=== PATIENT | female | born 1970 | race Caucasian/White ===

== ENCOUNTER 2018-08-31 21:44 | Emergency (ER) | payer SELFPAY ==
[2018-08-31 21:57] VITALS: BP 145/99; PULSE 89; RESP 45; TEMP 36.7; O2SAT 98
--- NOTE | 2018-09-01 01:24 | W.ED.GENAD ---
Discharge Plan Disposition Patient Disposition: HOME Condition: Good Discharge Details Chief Complaint: ETOHWithdr Clinical Impression: ETOH abuse, Cannabis abuse Reason For Visit: KARIN Primary Care Provider: NONE,NONE ED Provider: Jasvir Horne Home Meds and New Rx's Prescriptions: No Action [id number] [Airborne (lysine HCl)] 1 EACH tablet, effervescent 1 tab PO DAILY RF: 0 ondansetron 4 MG tablet,disintegrating 4 mg PO Q6H PRN PRN (Reason: Nausea / Vomiting) Qty: 6 RF: 0 levofloxacin [Levaquin] 750 MG tablet 750 mg PO DAILY AM Qty: 10 RF: 0 phenazopyridine [Pyridium] 200 MG tablet 200 mg PO TID Qty: 7 RF: 0 hydrocodone-acetaminophen 1 EACH tablet 1 - 2 ea PO Q6H PRN PRNQty: 14 RF: 0 Discharge Instructions Instructions: Abuse of Alcohol (ED) Additional Instructions: Please drink 8-10 cups of water per day. If you notice any difficulty breathing, wheezes, or cough please return immediately. If you notice any worsening of your symptoms, or any new symptoms such as vomiting, diarrhea, fever, chills, shortness of breath, chest pain, numbness, weakness, or fainting , please return immediately to the emergency department for reevaluation. Please follow up with your primary care provider as soon as possible for reassessment and reevaluation. As always, it was a pleasure participating in your medical care today. Medical Decision Making This is a 48-year-old female who presents for subjective difficulty breathing after smoking marijuana and drinking more alcohol than she normally does. She does appear notably intoxicated on exam. Patient will have gasping episodes, but has no abnormal lung sounds, and has been remaining at 99% or higher on pulse oximetry. Breath sounds are unlabored, respiration rate normal. The patient's states that she often gets like this when she has marijuana and too much alcohol. When a nonrebreather was placed on the patient she gained significant relief from this, although no oxygen is flowing. With normal vital signs, no red flags for pulmonary embolism, no history of significant respiratory disease, and no signs of abnormal physical exam findings I feel that she can be safely observed and then reassess. Unfortunately I feel her symptoms are secondary to her marijuana and alcohol consumption, rather than an actual respiratory etiology. 1:31 AM the patient has been sleeping comfortably for the last hour and a half. She shows no signs of respiratory distress, tachypnea, hypoxemia, or any other abnormalities. Patient is easily arousable, and she has no complaints of any significant respiratory issues. Lung sounds remain clear. At this time I feel that the patient can be safely discharged home into the care of her , for sobering up. With no signs of airway compromise, respiratory stridor distress, respiratory problems, and symptoms only present for evaluation of intoxication they feel that she is safe for discharge home with her family. Discussed red flags for which to return the patient and family understand. I have extensively reviewed the treatment plan and discharge instructions with the patient. I have addressed all patient concerns at this time. The patient was made aware of what symptoms to monitor for that would warrant a return to the emergency department. Discussed the plan with the patient, they demonstrate verbal understanding and agreement with our assessment and plan at this time. Final assessment: The patient is able to speak clearly. There is no demonstration of any slurring of speech. There is evidence of clear decision making capacity. Patient is able to ambulate well without any difficulty. There are no signs of ataxia or stumbling motions. HPI General Date/Time Provider Initiated Documentation: 08/31/18 22:52. HPI Narrative: This is a 48-year-old female with a past medical history of thyroid disease, who presents today for intoxication. Patient was at a wedding this evening with her when she drank a little bit more than normal and smoked some pott. She does have a history of mild anxiety, and her states that when she gets drunk she becomes very anxious. After drinking she felt both nervous and began gasping for air. Upon EMS arrival she was saturating at 99-100% on room air, and showed no concerning lung sounds. She was brought into the ER by request and for further evaluation. Currently the patient does appear notably intoxicated, she denies any complaints, when you distract the patient she breathes normally with no distress, however you do not focus her attention she begins to breathe erratically, taking deep gasps, stating that she needs oxygen. EMS did place a nonrebreather on her with no flowing oxygen and the patient received significant relief from this. Currently the patient has no other complaints at this time. No recent surgeries, no pertinent family history. No history of IV or illicit drug use. Denies PE risk factors such as recent long car rides, immobilization, recent surgery, prior history of DVT or PE, family history of PE or DVT, morbid obesity, exogenous estrogen and smoking, hemoptysis, history of cancer. No previous history of airway disease, or asthma. Related Data Home Medications Medication Instructions Recorded Confirmed [id number] 1 tab PO DAILY 01/29/14 01/29/14 [Airborne Effervescent Tablet] ondansetron 4 mg PO Q6H PRN PRN #6 tabef 01/29/14 hydrocodone-acetaminophen 1 - 2 ea PO Q6H PRN PRN #14 tablet 12/13/16 levofloxacin [Levaquin] 750 mg PO DAILY AM #10 tablet 12/13/16 phenazopyridine [Pyridium] 200 mg PO TID #7 tablet 12/13/16 Previous Rx's Medication Instructions Recorded ondansetron 4 mg PO Q6H PRN PRN #6 tabef 01/29/14 hydrocodone-acetaminophen 1 - 2 ea PO Q6H PRN PRN #14 tablet 12/13/16 levofloxacin [Levaquin] 750 mg PO DAILY AM #10 tablet 12/13/16 phenazopyridine [Pyridium] 200 mg PO TID #7 tablet 12/13/16 Allergies Allergy/AdvReac Type Severity Reaction Status Date / Time Penicillins Allergy Mild Skin Rash Unverified 01/29/14 12:12 hay fever Allergy Intermediate Wheezing Uncoded 01/29/14 12:12 General Stated Complaint: ETOHWithdr DYLAN: 3 Review of Systems Review of Systems All systems reviewed & are unremarkable except as noted in HPI and below PFSH Social History Smoking/Tobacco Use Status: Former Tobacco Use Exam Narrative Exam Narrative: 1.Const: Well-nourished, Well-developed, appearing stated age 2.Eyes: PERRL, no conjunctival injection, and symmetrical lids. 3.ENT: Atraumatic external nose and ears. Moist MM. Neck: Symmetric, trachea midline, No thyromegaly. 4.CVS: +S1/S2, No murmurs or gallops. Peripheral pulses 2+ and equal in all extremities. Brisk capillary refill in all extremities. 5.RESP: Unlabored respiratory effort. Clear to auscultation bilaterally. No wheezes rales or rhonchi. No signs of respiratory distress. No stridorous breath sounds. 6.GI: Soft, Nontender/Nondistended, No hepatosplenomegaly. No guarding or rebound. 7.MSK: Normocephalic/Atraumatic, Extremities w/o deformity or ttp No cyanosis or clubbing, Normal movement of all extremities 8.Skin: Warm, Dry. No rashes or lesions. 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 Sensation grossly intact, no focal neurologic deficits. 10.Psych: Patient does appear intoxicated, but demonstrates normal gag reflex and no signs of airway compromise per Course Vital Signs Temperature 36.7 C 08/31/18 21:57 Pulse 89 08/31/18 21:57 Respiratory Rate 45 H 08/31/18 21:57 Blood Pressure 145/99 H 08/31/18 21:57 Pulse Oximetry 98 08/31/18 21:57 Temperature 36.7 C 08/31/18 21:57 Temperature Source Temporal Artery Scan 08/31/18 21:57 Pulse 89 08/31/18 21:57 Respiratory Rate 45 H 08/31/18 21:57 Blood Pressure 145/99 H 08/31/18 21:57 Blood Pressure Position Supine 08/31/18 21:57 Pulse Oximetry 98 08/31/18 21:57 Oxygen Delivery Method Room Air 08/31/18 21:57 Oxygen Flow Rate 0 08/31/18 21:57 Pain Level 0 08/31/18 21:57
[2018-09-01 01:26] VITALS: BP 96/55; PULSE 85; TEMP 36.1
--- NOTE | 2018-09-01 01:34 | ED.GENADUL_ITS ---
Discharge Plan Disposition Patient Disposition: HOME Condition: Good Discharge Details Chief Complaint: ETOHWithdr Clinical Impression: ETOH abuse, Cannabis abuse Reason For Visit: KARIN Primary Care Provider: NONE,NONE ED Provider: Jasvir Horne Home Meds and New Rx's Prescriptions: No Action [id number] [Airborne (lysine HCl)] 1 EACH tablet, effervescent 1 tab PO DAILY RF: 0 ondansetron 4 MG tablet,disintegrating 4 mg PO Q6H PRN PRN (Reason: Nausea / Vomiting) Qty: 6 RF: 0 levofloxacin [Levaquin] 750 MG tablet 750 mg PO DAILY AM Qty: 10 RF: 0 phenazopyridine [Pyridium] 200 MG tablet 200 mg PO TID Qty: 7 RF: 0 hydrocodone-acetaminophen 1 EACH tablet 1 - 2 ea PO Q6H PRN PRNQty: 14 RF: 0 Discharge Instructions Instructions: Abuse of Alcohol (ED) Additional Instructions: Please drink 8-10 cups of water per day. If you notice any difficulty breathing , wheezes, or cough please return immediately. If you notice any worsening of your symptoms, or any new symptoms such as vomiting, diarrhea, fever, chills, shortness of breath, chest pain, numbness, weakness, or fainting , please return immediately to the emergency department for reevaluation. Please follow up with your primary care provider as soon as possible for reassessment and reevaluation. As always, it was a pleasure participating in your medical care today. Medical Decision Making This is a 48-year-old female who presents for subjective difficulty breathing after smoking marijuana and drinking more alcohol than she normally does. She does appear notably intoxicated on exam. Patient will have gasping episodes, but has no abnormal lung sounds, and has been remaining at 99% or higher on pulse oximetry. Breath sounds are unlabored, respiration rate normal. The patient's states that she often gets like this when she has marijuana and too much alcohol. When a nonrebreather was placed on the patient she gained significant relief from this, although no oxygen is flowing. With normal vital signs, no red flags for pulmonary embolism, no history of significant respiratory disease, and no signs of abnormal physical exam findings I feel that she can be safely observed and then reassess. Unfortunately I feel her symptoms are secondary to her marijuana and alcohol consumption, rather than an actual respiratory etiology. 1:31 AM the patient has been sleeping comfortably for the last hour and a half. She shows no signs of respiratory distress, tachypnea, hypoxemia, or any other abnormalities. Patient is easily arousable, and she has no complaints of any significant respiratory issues. Lung sounds remain clear. At this time I feel that the patient can be safely discharged home into the care of her , for sobering up. With no signs of airway compromise, respiratory stridor distress, respiratory problems, and symptoms only present for evaluation of intoxication they feel that she is safe for discharge home with her family. Discussed red flags for which to return the patient and family understand. I have extensively reviewed the treatment plan and discharge instructions with the patient. I have addressed all patient concerns at this time. The patient was made aware of what symptoms to monitor for that would warrant a return to the emergency department. Discussed the plan with the patient, they demonstrate verbal understanding and agreement with our assessment and plan at this time. Final assessment: The patient is able to speak clearly. There is no demonstration of any slurring of speech. There is evidence of clear decision making capacity. Patient is able to ambulate well without any difficulty. There are no signs of ataxia or stumbling motions. HPI General Date/Time Provider Initiated Documentation: 08/31/18 22:52 . HPI Narrative: This is a 48-year-old female with a past medical history of thyroid disease, who presents today for intoxication. Patient was at a wedding this evening with her when she drank a little bit more than normal and smoked some pott. She does have a history of mild anxiety, and her states that when she gets drunk she becomes very anxious. After drinking she felt both nervous and began gasping for air. Upon EMS arrival she was saturating at 99-100% on room air, and showed no concerning lung sounds. She was brought into the ER by request and for further evaluation. Currently the patient does appear notably intoxicated, she denies any complaints, when you distract the patient she breathes normally with no distress, however you do not focus her attention she begins to breathe erratically, taking deep gasps, stating that she needs oxygen. EMS did place a nonrebreather on her with no flowing oxygen and the patient received significant relief from this. Currently the patient has no other complaints at this time. No recent surgeries , no pertinent family history. No history of IV or illicit drug use. Denies PE risk factors such as recent long car rides, immobilization, recent surgery, prior history of DVT or PE, family history of PE or DVT, morbid obesity, exogenous estrogen and smoking, hemoptysis, history of cancer. No previous history of airway disease, or asthma. Related Data Home Medications Medication Instructions Recorded Confirmed [id number] 1 tab PO DAILY 01/29/14 01/29/14 [Airborne Effervescent Tablet] ondansetron 4 mg PO Q6H PRN PRN #6 tabef 01/29/14 hydrocodone-acetaminophen 1 - 2 ea PO Q6H PRN PRN #14 tablet 12/13/16 levofloxacin [Levaquin] 750 mg PO DAILY AM #10 tablet 12/13/16 phenazopyridine [Pyridium] 200 mg PO TID #7 tablet 12/13/16 Previous Rx's Medication Instructions Recorded ondansetron 4 mg PO Q6H PRN PRN #6 tabef 01/29/14 hydrocodone-acetaminophen 1 - 2 ea PO Q6H PRN PRN #14 tablet 12/13/16 levofloxacin [Levaquin] 750 mg PO DAILY AM #10 tablet 12/13/16 phenazopyridine [Pyridium] 200 mg PO TID #7 tablet 12/13/16 Allergies Allergy/AdvReac Type Severity Reaction Status Date / Time Penicillins Allergy Mild Skin Rash Unverified 01/29/14 12:12 hay fever Allergy Intermediate Wheezing Uncoded 01/29/14 12:12 General Stated Complaint: ETOHWithdr DYLAN: 3 Review of Systems Review of Systems All systems reviewed & are unremarkable except as noted in HPI and below PFSH Social History Smoking/Tobacco Use Status: Former Tobacco Use Exam Narrative Exam Narrative: 1.Const: Well-nourished, Well-developed, appearing stated age 2.Eyes: PERRL, no conjunctival injection, and symmetrical lids. 3.ENT: Atraumatic external nose and ears. Moist MM. Neck: Symmetric, trachea midline, No thyromegaly. 4.CVS: +S1/S2, No murmurs or gallops. Peripheral pulses 2+ and equal in all extremities. Brisk capillary refill in all extremities. 5.RESP: Unlabored respiratory effort. Clear to auscultation bilaterally. No wheezes rales or rhonchi. No signs of respiratory distress. No stridorous breath sounds. 6.GI: Soft, Nontender/Nondistended, No hepatosplenomegaly. No guarding or rebound. 7.MSK: Normocephalic/Atraumatic, Extremities w/o deformity or ttp No cyanosis or clubbing, Normal movement of all extremities 8.Skin: Warm, Dry. No rashes or lesions. 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 Sensation grossly intact, no focal neurologic deficits. 10.Psych: Patient does appear intoxicated, but demonstrates normal gag reflex and no signs of airway compromise per Course Vital Signs Temperature 36.7 C 08/31/18 21:57 Pulse 89 08/31/18 21:57 Respiratory Rate 45 H 08/31/18 21:57 Blood Pressure 145/99 H 08/31/18 21:57 Pulse Oximetry 98 08/31/18 21:57 Temperature 36.7 C 08/31/18 21:57 Temperature Source Temporal Artery Scan 08/31/18 21:57 Pulse 89 08/31/18 21:57 Respiratory Rate 45 H 08/31/18 21:57 Blood Pressure 145/99 H 08/31/18 21:57 Blood Pressure Position Supine 08/31/18 21:57 Pulse Oximetry 98 08/31/18 21:57 Oxygen Delivery Method Room Air 08/31/18 21:57 Oxygen Flow Rate 0 08/31/18 21:57 Pain Level 0 08/31/18 21:57
== END 2018-09-01 01:44 | disposition home or self-care (01) ==
PROVIDERS: Emergency Provider Student in an Organized Health Care Education/Training Program
DX: F10.129 Alcohol abuse with intoxication, unspecified (principal); F12.10 Cannabis abuse, uncomplicated; F41.9 Anxiety disorder, unspecified
CPT/HCPCS: 99285; 99283

== ENCOUNTER 2019-06-18 11:21 | Outpatient (REF) | payer MEDICAID, SELFPAY ==
--- NOTE | 2019-06-18 10:30 | PAPFT_PTH ---
PATIENT: Cherri Beckford LOC: [facility] U#:[id number] AGE/SX: 49/F ROOM: RE06/18/[address]: Keya Lipscomb NP : 1970 BED: DIS: 06/18/2019 SPEC #: [id number] RECD: 06/18/19 12:53 STATUS: ROSA RERadha #: [id number] YFN: 06/18/19 10:[address]: Keya Lipscomb NP DEPT: [facility] Cytology RECD BY: Rossi Tavarez ENTERED: 06/18/19 12:53 SP TYPE: PAPFT LISA DR: None Tissues: 1 - CX/ENDOCX FOR PAP SMEARS Procedures: PAP THIN PREP/UVM Screening HPV DNA PROBE Comments: [id number]
== END 2019-06-18 11:41 ==
LOC: LBN 11:21
PROVIDERS: Visit Provider Nurse Practitioner Women's Health
DX: Z12.4 Encounter for screening for malignant neoplasm of cervix (principal); Z11.51 Encounter for screening for human papillomavirus (HPV)
CPT/HCPCS: 88142; 87624

== ENCOUNTER 2019-07-30 00:25 | Outpatient (CLI) | payer MEDICAID, SELFPAY ==
--- NOTE | 2019-07-30 08:20 | DI.MAMMO_ITS ---
SYMPTOMS/DIAGNOSIS: SCREENING, Z12.31, BASELINE MAMMOGRAM: Mammograms were interpreted according to the usual protocol including computer analysis with CAD system, tomosynthesis and C view imaging. This is a baseline exam. The breasts are composed of heterogeneously dense fibroglandular tissue, breast density Category C. No suspicious masses or suspicious microcalcifications are seen. IMPRESSION: Category I, negative mammogram. Yearly screening mammography is recommended. [facility] ASSESSMENT OF FINDINGS: Negative. Category 1. Patient will receive a letter notifying them of these results. Bi-RADS category C. The breasts are heterogeneously dense, which may obscure small masses.
== END 2019-07-30 00:45 ==
PROVIDERS: Visit Provider Nurse Practitioner Women's Health
DX: Z12.31 Encounter for screening mammogram for malignant neoplasm of breast (principal)
CPT/HCPCS: 77063; 77067

== ENCOUNTER 2019-08-14 07:07 | Day surgery (SDC) | payer MEDICAID, SELFPAY ==
[2019-08-14 07:33] VITALS: BP 137/76; PULSE 82; RESP 16; TEMP 36.1; O2SAT 99
[2019-08-14] MEDS: Lactated Ringers 1,000 ML 80 ML IV (07:40)
--- NOTE | 2019-08-14 08:43 | W.PM.DSUDISC ---
Discharge Plan Disposition Patient Disposition: HOME Condition: Good Discharge Details Reason For Visit: colonoscopy Attending Provider: Brenda Silver Primary Care Provider: None,None Home Meds and New Rx's Prescriptions: No Action cetirizine [Zyrtec] 10 mg Tablet 10 mg PO BID RF: 0 Astragalas 300 mg capsule 900 mg PO DAILY RF: 0 Discharge Instructions Additional Instructions: Findings:nl colon Follow up:repeat scope in 5 yrs Please call if you develop: fevers >101.5 Nausea or Vomiting Abdominal pain that is not transient DAY SURGERY UNIT POST COLONOSCOPY INSTRUCTIONS 1. Because there will be medication in your system for the next 24 hours, you may feel a little sleepy. Your coordination will be affected. Therefore: a. Do not drive or operate dangerous equipment for 24 hours. b. Do not drink alcohol beverages for 24 hours (not even beer). c. Plan to go home and rest for the day. 2. Generally there are no restrictions on your activity after a day or so has gone by, but you may feel a bit fatigued for a few days. 3 After you arrive home you may have a light meal and return to a normal diet as you can tolerate it without feeling sick to your stomach. 4. After surgery, you may feel pain or discomfort. This should be only transient, but if it persists please contact your doctor. 5. If there are any questions regarding the findings of your procedure, please feel free to contact your doctor. 6. If you are unable to contact your doctor with a problem, contact the hospital at [phone]. 7. Continue all your regular medications unless directed otherwise. I understand the above instructions and have no questions. Signature of Patient or Responsible Adult Escort Date/Time Name of Responsible Adult Escort Signature of Nurse Date/Time Activity:: no strenuous acitivity x 24 Diet:: sm lt meals x 24 hrs Discharge Orders Discharge Orders: Discharge Order (Routine); Ordered 08/14/19 Ordered By: Brenda Silver DS: Diagnosis Discharge Diagnosis (1) Family history of colon cancer: Status: Acute
--- NOTE | 2019-08-14 08:45 | W.COLOREPORT ---
Date of service: 08/14/19 Time of Service: 08:45 Colonoscopy Report Date of procedure: 08/14/19 Pre-op diagnosis general: first degree family members w/ CRC Post-op diagnosis procedure note: same Procedure: CE Surgeon: Brenda Silver Anesthesia proc note operative: GETA Estimated blood loss (mL): 0 Pathology: none sent Complications: None Disposition: same day Prep: Miralax/Dulcolax Retraction Time: 10 mins Procedure Description: After informed consent was obtained the patient was taken to the procedure room and placed in a left decubitous position. Monitors were applied and a time out was done. The patients name, date of , procedure, allergies to medications and metal in their body was reviewed. The patient was then sedated. Once sedated and comfortable a rectal exam was done. External exam was normal. Internal exam revealed a normal sphincter tone and no palpable masses. The scope was then introduced and retrofelexed. Grade I internal hemorrhoids and external hemorrhoids were identified. The scope was then advanced to the cecum without difficulty. The TI and appendiceal orifice were identified. The prep was good. The scope was then slowly retracted over 10 minutes back into the rectum. No polyps AVMs or diverticuli are noted.. The scope was removed and the patient was woken up and taken back to Same day surgery in stable condition. The patient tolerated the procedure well and there were no immediate complications. Follow up: The patient should follow up in 5 years unless they develop changes in bowel habits or other new gastrointestinal complaints.
[2019-08-14 09:30] VITALS: BP 115/56; PULSE 59; RESP 16; TEMP 36; O2SAT 99
== END 2019-08-14 09:50 | disposition home or self-care (01) ==
PROVIDERS: Visit Provider Surgery
PROC: 0DJD8ZZ Inspection of Lower Intestinal Tract, Via Natural or Artificial Opening Endoscopic (ICD-10-PCS; CPT 45378; principal; 2019-08-14 08:30)
DX: Z12.11 Encounter for screening for malignant neoplasm of colon (principal); Z80.0 Family history of malignant neoplasm of digestive organs; K64.0 First degree hemorrhoids; K64.8 Other hemorrhoids
CPT/HCPCS: 45378

== ENCOUNTER 2020-09-20 16:07 | Outpatient (CLI) | payer SELFPAY ==
[2020-09-20 16:41] LABS: HCG Quant, Pregnancy 1 mIU/mL (1-3)
== END 2020-09-20 16:27 ==
PROVIDERS: Visit Provider Nurse Practitioner Women's Health
DX: Z72.51 High risk heterosexual behavior (principal)
CPT/HCPCS: 36415; 84702

== ENCOUNTER 2020-09-20 17:18 | Outpatient (REF) | payer SELFPAY ==
[2020-09-29 16:03] LABS: Chlamydia Result Negative (Negative); GC Result Negative (Negative)
== END 2020-09-20 17:38 ==
LOC: LBN 17:18
PROVIDERS: Visit Provider Nurse Practitioner Women's Health
DX: Z11.3 Encounter for screening for infections with a predominantly sexual mode of transmission (principal)
CPT/HCPCS: 87491; 87591

== ENCOUNTER 2020-10-13 00:48 | Outpatient (CLI) | payer MEDICAID, SELFPAY ==
--- NOTE | 2020-10-13 12:49 | DI.MAMMO_ITS ---
EXAM: MG MAMMO SCREENING CLINICAL HISTORY: screening TECHNIQUE: Bilateral full field digital CC and MLO mammographic images were obtained with 3D tomosyn thesis and utilizing computer aided detection (CAD). COMPARISON: Available for comparison. FINDINGS: Masses/Architectural Distortion: None seen. Microcalcifications: No suspicious pleomorphic-type are seen. Skin Thickening/Nipple Retraction: None. IMPRESSION: 1. No significant interval change with no specific features of malignancy noted. 2. Unless there is more urgent need, screening mammography is recommended, as per [employer] guidelines. BI-RADS Category 1 - Negative Breast Density - Category C - Heterogeneously dense The mammogram demonstrates the patient's breast tissue is dense. Dense breast tissue is very common a nd is not abnormal but dense breast tissue can make it harder to find cancer on a mammogram. Also, de nse breast tissue may increase their breast cancer risk. This information about the result of the [facility] mogram report was provided to the patient to raise their awareness. Use this report when you speak wi th the patient about their risks for breast cancer, which includes their family history. At that time , you may recommend for more screening tests (Ultrasound or MRI) as they might be useful based on the ir risk. A negative radiographic report should not delay biopsy if a dominant or clinically suspicious mass is present. Up to ten percent of cancers are not identified on mammography. A negative report may reinforce clinical impression. Adenosis and dense breasts may obscure an underlying neoplasm. False positive reports average 6 to 10%. Patient will receive a letter notifying them of these results.
== END 2020-10-13 01:08 ==
PROVIDERS: Visit Provider Nurse Practitioner Women's Health
DX: Z12.31 Encounter for screening mammogram for malignant neoplasm of breast (principal)
CPT/HCPCS: 77063; 77067

== ENCOUNTER 2021-03-07 22:55 | Emergency (ER) | payer SELFPAY ==
[2021-03-07 23:17] VITALS: BP 134/78; PULSE 75; RESP 18; TEMP 37.1; O2SAT 95
--- NOTE | 2021-03-07 23:30 | RT.EKG_ITS ---
APPROVED REPORT Exam: Resting ECG Patient Location: E HR:67 bpm ECG Measurements Heart Rate 67 AXIS AZ 176 P 9 QRSd 89 QRS 39 QT 423 T 31 QTc 448 Conclusion Sinus rhythm...normal P axis, V-rate 60- 99
--- NOTE | 2021-03-07 23:30 | DI.CT_ITS ---
EXAM: CT CHEST PE CTA CLINICAL HISTORY: shortness of breath and chest pain. TECHNIQUE: Imaging Protocol: Axial CT angiography was performed with multi-slice acquisition and mu lti-planar and/or 3D reconstructions. CONTRAST MATERIAL: Intravenous: Omnipaque 350 Contrast volume:75 mL COMPARISON: No exams were available for comparison FINDINGS: Tracheobronchial tree: Patent where visualized. Pulmonary parenchyma: Multifocal predominantly peripheral ground-glass opacities throughout the lungs . No architectural distortion. Pulmonary Arteries: No evidence of filling defect to suggest pulmonary emboli. Mediastinum and Bhavya: No dominant adenopathy or fluid collection. Visualized thyroid gland: Unremarkable. Pleura: No effusion or pneumothorax. Heart: The heart is not dilated. No coronary artery calcifications are seen. No pericardial effusion. Aorta: Thoracic aorta non-dilated. Upper abdomen: Unremarkable. Soft tissues: Unremarkable. Bones: Within normal limits for the patient's age. IMPRESSION: 1. No evidence of pulmonary embolism, thoracic aortic dissection or aneurysm. 2. Patchy predominantly peripheral ground-glass opacities suspicious for infection. The findings are nonspecific but atypical pneumonia should be considered including COVID-19. Please correlate clinic ally. RADIATION DOSE DELIVERED: 397.49mGy.cm Total DLP DATA REPOSITORY: All CT scans at this facility are submitted to the National Radiology Data Registry (NRDR) Dose Index Registry (DIR) with the [employer] (ACR). RADIATION OPTIMIZATION: All CT scans at this facility use at least one of these dose optimization te chniques: automated exposure control; mA and/or kV adjustment per patient size (includes targeted exa ms where dose is matched to clinical indication); or iterative reconstruction.
--- NOTE | 2021-03-07 23:38 | ED.GENADUL_ITS ---
Discharge Plan Disposition Patient Disposition: HOME Condition: Stable Discharge Details Clinical Impression: Asthma, Shortness of breath Primary Care Provider: None,None ED Provider: Vinnie Lipscomb Home Meds and New Rx's Prescriptions: New prednisone 20 mg tablet 60 mg PO DAILY 4 Days Qty: 12 RF: 0 levofloxacin 750 mg tablet 750 mg PO DAILY Qty: 5 RF: 0 levalbuterol HCl 1.25 mg/3 mL solution for nebulization 1.25 mg inhalation Q20M PRNQty: 72 RF: 0 Continued Mirena 20 mcg/24 hours (6 yrs) 52 mg intrauterine device 1 device intrauterine ONCE RF: 0 cetirizine [Zyrtec] 10 mg Tablet 10 mg PO BID RF: 0 Astragalas 300 mg capsule 900 mg PO DAILY RF: 0 Discharge Instructions Instructions: Asthma (ED), Instructions for Self Monitoring Oxygen Saturation Additional Instructions: your blood work and cat scan did not show any concerning findings, I suspect this is your asthma. you have a pending covid test follow up with your primary care provider this week if you feel more ill, have worsening difficulty breathing or worsening pain return to the emergency department Stand Alone Forms: PENDING COVID-19 TESTING Medical Decision Making 51 yo female with hx of asthma and former smoker who comes in with 9 days of feeling short of breath and feels tight trying to get air in when she breaths per patient. denies chest pressure or diaphoresis, has had a temp intermittently to 100 per the patient with no travle or known sick contacts. Denies ivdu. Denies leg swelling or leg pain. She arrives stable speaking in full sentenfes and in no distress. She has mild apical wheezing on exam bilaterally otherwise clear lungs, no leg swelling, no abdominal tenderness and no murmurs. Suspect uri vs covid vs asthma exacerbation, will obtain covid test and also treat with neb and steroids. Her heart score is 2, will send troponin and obtain ecg. Given her symptoms PE is just as likely a diagnosis so will obtain CTA. Given well appearance and low grade fever at home less likely pneumonia but CT will help evaluate further for this. She has no tachycardia, tachypnea and appears well so doubt sepsis at this time. patient's labs unremarkable, awaiting vrad report, she remains stable and appears well patient's ct shows alveolar opacities and ground glass pulmonary densities which is nonspecific but covid could have this appearance. She feels significantly better after a neb and continues to have stable vital signs. Discussed with results with patient and given reassuring exam and vitals she is stable for d/c and is comfortable with this plan. Will treat as possible CAP though unlikely given well appearance. Given her history of asthma will also treat with prednisone. Usual and customary return precautions given Differential Diagnosis Differential Diagnosis: covid, pe, pneumonia, nstemi, asthma Imaging Data Radiologic Study: Attestation: I personally reviewed and interpreted this imaging study as follows: Imaging: X-Ray Radiologist's impression: IMPRESSION: Patchy alveolar opacities and ground-glass pulmonary densities with an most suggestive of an acute multifocal pulmonary infection. The appearance is nonspecific; however, COVID-19 pneumonia could have this appearance and should be primarily excluded. Lab Data Lab results reviewed: Yes I reviewed the patient's lab results. ECG Data Attestation: I personally reviewed and interpreted this ECG (s) as follows: Prior ECG tracings: not available for review Interpretation: sinus rhythm, rate of 67, pr 176, qtc 448, no acute st t wave ischemic findings HPI General Mode of arrival: ambulatory . Date/Time Provider Initiated Documentation: 03/07/21 22:57 . Limitations to Documentation: no limitations . Information obtained by: patient . History of Present Illness 51 year old F presents to the emergency department with the chief complaint of shortness of breath, described as moderate, Patient started experiencing this day(s) (9) and it has been constant. Rest improves symptom(s), Movement worsens symptoms . Patient notes no other symptoms.. Patient did receive the following treatments prior to arrival, none Related Data Home Medications Medication Instructions Recorded Confirmed cetirizine [Zyrtec] 10 mg PO BID 08/12/19 03/07/21 Astragalas 900 mg PO DAILY 08/14/19 03/07/21 levonorgestrel 20 mcg/24 hours (6 1 device INTRAUTERINE ONCE 02/15/21 03/07/21 yrs) 52 mg intrauterine device levalbuterol HCl 1.25 mg INHALATION Q20M PRN #72 ml 03/08/21 levofloxacin 750 mg PO DAILY #5 tab 03/08/21 prednisone 60 mg PO DAILY 4 Days #12 tab 03/08/21 Previous Rx's Medication Instructions Recorded levalbuterol HCl 1.25 mg INHALATION Q20M PRN #72 ml 03/08/21 levofloxacin 750 mg PO DAILY #5 tab 03/08/21 prednisone 60 mg PO DAILY 4 Days #12 tab 03/08/21 Allergies Allergy/AdvReac Type Severity Reaction Status Date / Time Penicillins Allergy Mild Skin Rash Verified 03/07/21 23:26 meperidine [From Demerol] AdvReac Intermediate vomiting Verified 03/07/21 23:26 hay fever Allergy Intermediate Wheezing Uncoded 03/07/21 23:26 novacaine Allergy Unknown Pt states Uncoded 03/07/21 23:26 unable to use General Stated Complaint: SOB DYLAN: 2 Review of Systems All systems reviewed & are unremarkable except as noted in HPI and below Constitutional Constitutional: Denies weakness ENT Ears, Nose, Mouth, and Throat: Denies change in voice Gastrointestinal Gastrointestinal: Denies abdominal pain, Denies nausea and Denies vomiting Musculoskeletal Musculoskeletal: Denies joint swelling Integumentary/Breasts Skin/Breast: Denies rash Neurologic Neurologic: Denies weakness [facility] Medical History (Updated 03/08/21 @ 00:40 by Vinnie Lipscomb MD) Asthma Cervical polyp IUD surveillance (~11/2020) Mirena Surgical History History of dental surgery Family History Paternal Grandfather Colon cancer Paternal Aunt Colon cancer Paternal Aunt Colon cancer Father Colon cancer Brother Myocardial infarct Substance abuse alcohol Hyperplastic colon polyp Social History Smoking/Tobacco Use Status: Former Tobacco Use Quit Date: 11/26/94 Tobacco: How many years used: 3 Smoking risk assessment performed?: Yes Alcohol Intake: current Alcohol Intake frequency: 0-2 drinks per day Alcohol type: beer Drug use: Occasionally Substance use type: marijuana Details: alcohol sunday one beer Do you feel safe at home: Yes Do you feel safe in your relationship?: Yes Female Reproductive History Menstrual Age of Menarche: 17 control method: other ( with vasectomy) History History 5 Para 4 Hx # Term Pregnancies Multiple births Hx # Pregnancies Ectopic pregnancies AB induced Hx Number of Living Children AB spontaneous Exam Const General: no acute distress Orientation: alert HENMT Head: normal to inspection Ears: external ears normal General nose exam: external nose normal Mouth: moist mucous membranes Eyes General: appearance normal, both eyes and all related structures Neck Neck: normal visual inspection Resp Effort & Inspection: normal respiratory effort and able to speak in complete sentences Cardio Rate: regular rate Skin General skin exam: no rashes or lesions noted Neuro General: patient alert and patient oriented x3 Extrem General: normal to inspection Psych Mental Status: mental status grossly normal Course Vital Signs Vital signs: Vital Signs Temperature 37.1 C 03/07/21 23:17 Pulse 75 03/07/21 23:17 Respiratory Rate 18 03/07/21 23:17 Blood Pressure 134/78 03/07/21 23:17 Pulse Oximetry 95 03/07/21 23:17 Temperature 37.1 C 03/07/21 23:17 Temperature Source Skin 03/07/21 23:17 Pulse 75 03/07/21 23:17 Respiratory Rate 18 03/07/21 23:17 Respiratory Effort Non-Labored 03/07/21 23:27 Blood Pressure 134/78 03/07/21 23:17 Pulse Oximetry 95 03/07/21 23:17 Oxygen Delivery Method Room Air 03/07/21 23:17 Oxygen Flow Rate 0 03/07/21 23:17 Pain Level 3 03/07/21 23:17
[2021-03-08 00:04] LABS: BE (Venous) 5 mmol/L (-2-3); HCO3 (Venous) 30 mmol/L (23-28); O2 Sat (Venous) 64 %; TCO2 (Venous) 27 mmol/L (24-29); pCO2 (Venous) 48 mmHg (41-51); pO2 (Venous) 33 mmHg
[2021-03-08 00:06] LABS: Abs Immature Grans 0.01 10^3/uL (0.0-0.06); Absolute Eosinophil Count 0.01 10^3/uL (0.0-0.7); Absolute Lymphocyte Count 0.93 10^3/uL (1.2-3.4); Absolute Neutrophil Count 2.58 10^3/uL (1.2-6.7); Eosinophils % 0.3; HCT 42.3 % (36.0-46.0); HGB 13.9 g/dL (11.2-15.7); Immature Grans % 0.3; Lymphocytes % 24.3; MCH 31.7 pg (27.0-33.0); MCHC 32.9 % (32.0-36.0); MCV 96.6 fL (80-95); MPV 9.6 fL (8.0-11.0); Monocytes % 7.8; Neutrophils % 67.3; Nucleated RBC 0 %; Platelet Count 139 10^3/uL (130-400); RBC 4.38 10^6/uL (3.93-5.22); RDW 11.6 % (11.7-14.6); RDW-SD 41.2 fL; WBC 3.83 10^3/uL (4.4-10.8)
[2021-03-08] MEDS: Omnipaque 350 MG/ML 100 ML BTL IJ (00:17)
[2021-03-08] MEDS: Normal Saline - Diluent 50 ML VIAL IV (00:18)
[2021-03-08] MEDS: Normal Saline Flush 10 ML SYR IVP (00:18)
[2021-03-08] MEDS: methylPREDNISolone SUCC 125 MG VIAL IVP (00:19)
[2021-03-08 00:24] LABS: ALT 20 U/L (14-59); AST 17 U/L (15-37); Albumin 3.6 g/dL (3.4-5.0); Alkaline Phosphatase 67 U/L (46-116); Anion Gap 8.5 mmol/L (3-11); BUN 13 mg/dL (7-18); Bilirubin, Total 0.2 mg/dL (0.2-1.0); CO2 28.5 mmol/L (21.0-32.0); CREATININE 0.9 mg/dL (0.55-1.02); Chloride 105 mmol/L (98-107); Glucose 100 mg/dL (74-106); Magnesium 1.6 mg/dL (1.8-2.4); Potassium 3.9 mmol/L (3.5-5.1); Sodium 142 mmol/L (136-145); Total Protein 6.9 g/dL (6.4-8.2)
[2021-03-08 00:27] LABS: Troponin I < 0.05 ng/mL (<0.06)
[2021-03-08 00:30] VITALS: PULSE 64; RESP 1; RESP 14; O2SAT 96
[2021-03-08] MEDS: Albuterol/Ipratropium 3 ML UPD VIAL UPD (00:30)
--- NOTE | 2021-03-08 00:51 | DI.VRAD_ITS ---
PROCEDURE INFORMATION: Exam: CTA Chest With Contrast Exam date and time: 03/07/2021 12:02 AM Age: 51 years old Clinical indication: Shortness of breath; Type not specified; Patient HX: SOB, chest pain, heaviness TECHNIQUE: Imaging protocol: Computed tomographic angiography of the chest with contrast. 3D rendering (Not supervised by radiologist): MIP and/or 3D reconstructed images were created by the technologist. Radiation optimization: All CT scans at this facility use at least one of these dose optimization techniques: automated exposure control; mA and/or kV adjustment per patient size (includes targeted exams where dose is matched to clinical indication); or iterative reconstruction. Contrast material: OMNIPAQUE 350; Contrast volume: 75 ml; Contrast route: INTRAVENOUS (IV); COMPARISON: No relevant prior studies available. FINDINGS: Pulmonary arteries: No pulmonary embolism identified. Aorta: No thoracic aortic aneurysm. Thyroid: Thyroid gland partially obscured but normal in size. Lungs: Patchy bilateral alveolar opacities and ground-glass pulmonary densities. Pleural spaces: No pleural effusion or pneumothorax. Heart: Overall normal sized heart. Lymph nodes: Shotty mediastinal and hilar lymph nodes, nonspecific. Bones/joints: Lower ribs partially excluded from view and incompletely evaluated. Otherwise, no acute fracture seen among the bones of the chest. Soft tissues: No gross soft tissue mass or fluid collection seen in the chest wall. IMPRESSION: Patchy alveolar opacities and ground-glass pulmonary densities with an most suggestive of an acute multifocal pulmonary infection. The appearance is nonspecific; however, COVID-19 pneumonia could have this appearance and should be primarily excluded. Dictated and Authenticated by: Delfin Aly MD. Ordering:ROGER Birmingham MD
[2021-03-08 01:19] VITALS: BP 134/78; PULSE 64; RESP 14; TEMP 37.1; O2SAT 96
[2021-03-08] MEDS: levoFLOXacin 500 MG, levoFLOXacin 250 MG 750 MG PO (01:19)
--- NOTE | 2021-03-08 11:29 | NUR.NOTE ---
Call from Francisca Ramos, pt given Rx for nebulizer, has no insurance and Rx is >$100. Rx changed to inhaler 1-2 puffs Q2-[address] Schumacher.
[2021-03-09 13:27] LABS: COVID-19 RT-PCR UVMMC Result Positive (Negative)
--- NOTE | 2021-03-09 13:32 | NUR.NOTE ---
Relayed positive covid test results to Kyle. 03/09/21 [id number]
--- NOTE | 2021-03-09 23:16 | W.ED.FU ---
Patient's Covid test resulted positive today. She was called on her cell phone and given the result. She states she has overall been feeling better but occasionally has setbacks. She is advised to finish the antibiotics and steroids she was given on her ED visit 2 days ago. Considering her history of asthma, she may qualify for monoclonal antibodies. She does not have a primary care doctor. Patient placed on care management list to help arrange for a primary care doctor appointment within the next week and to determine if she qualifies for monoclonal antibodies. She was advised to return immediately to the emergency department if she develops any worsening or new concerning symptoms.
--- NOTE | 2021-03-10 01:47 | NUR.NOTE ---
Put copy of referral in Sign [employer]te[employer] Painter's box for establishment of a PCP.Nursing Note:
== END 2021-03-08 01:20 | disposition home or self-care (01) ==
PROVIDERS: Emergency Provider Emergency Medicine
DX: J45.998 Other asthma (principal); R06.02 Shortness of breath; Z87.891 Personal history of nicotine dependence; R50.9 Fever, unspecified; Z20.828 Contact with and (suspected) exposure to other viral communicable diseases
CPT/HCPCS: 36415; 71275; 80053; 82805; 93005; 94640; 96374; 99285; U0003; 83735; 84484; 85025; 93010; J2930; J3490; J7620

== ENCOUNTER 2021-06-07 03:51 | Outpatient (CLI) | payer SELFPAY ==
[2021-06-07 08:52] LABS: HCT 41.1 % (36.0-46.0); HGB 13.6 g/dL (11.2-15.7); MCH 32.6 pg (27.0-33.0); MCHC 33.1 % (32.0-36.0); MCV 98.6 fL (80-95); MPV 9.9 fL (8.0-11.0); Platelet Count 208 10^3/uL (130-400); RBC 4.17 10^6/uL (3.93-5.22); RDW-SD 43.7 fL; WBC 6.36 10^3/uL (4.4-10.8)
[2021-06-07 09:54] LABS: ALT 17 U/L (14-59); AST 12 U/L (15-37); Albumin 3.6 g/dL (3.4-5.0); Alkaline Phosphatase 51 U/L (46-116); BUN 12 mg/dL (7-18); Bilirubin, Total 0.3 mg/dL (0.2-1.0); Calcium 8.7 mg/dL (8.5-10.1); Chloride 107 mmol/L (98-107); Estimated GFR 58.93 (mL/min/1.73m2); Glucose 101 mg/dL (74-106); Potassium 3.6 mmol/L (3.5-5.1); Sodium 143 mmol/L (136-145); Total Protein 6.4 g/dL (6.4-8.2)
[2021-06-08 20:25] LABS: Calculated LDL 97 mg/dL (<100); Cholesterol 185 mg/dL (<200); HDL Cholesterol 75 mg/dL (40-60); Triglyceride 67 mg/dL (<150)
== END 2021-06-07 03:52 | disposition home or self-care (01) ==
LOC: LBO 03:51
PROVIDERS: PCP Student in an Organized Health Care Education/Training Program; Visit Provider Student in an Organized Health Care Education/Training Program
DX: R00.0 Tachycardia, unspecified (principal); E86.0 Dehydration; R35.0 Frequency of micturition; Z13.1 Encounter for screening for diabetes mellitus; Z13.220 Encounter for screening for lipoid disorders; R06.02 Shortness of breath; Z86.2 Personal history of diseases of the blood and blood-forming organs and certain disorders involving the immune mechanism
CPT/HCPCS: 36415; 80053; 80061; 85027

== ENCOUNTER 2021-07-06 10:55 | Outpatient (RCR) | payer SELFPAY ==
--- NOTE | 2021-07-06 11:15 | HOLTER_ITS ---
APPROVED REPORT Conclusion There is a 48-hour monitor ordered for indication of tachycardia. The patient was in normal sinus rhythm for majority the recording with an average heart rate of 71 bp m. There were no episodes of ventricular tachycardia and rare PVCs. There was one episode of supraventricular tachycardia lasting a total of 3 beats and very rare PACs. There were no episodes of atrial fibrillation, no pauses greater than 3 seconds and no evidence of hi gh degree heart block. There were 2 patient triggered events associated with palpitations/flutter neither of which correlate d with any significant arrhythmia.
--- NOTE | 2021-09-08 14:59 | RESPIRATORY ---
Pt had a CER ordered by Dr. Santiago on 07/13/21. 3 voicemails were left by Respiratory Therapy, we were unable to schedule this with patient.
== END 2021-07-26 23:59 | disposition home or self-care (01) ==
LOC: RT 10:55
PROVIDERS: PCP Student in an Organized Health Care Education/Training Program; Visit Provider Student in an Organized Health Care Education/Training Program
DX: R00.0 Tachycardia, unspecified (principal); I47.1 Supraventricular tachycardia
CPT/HCPCS: 93225; 93226

== ENCOUNTER 2021-09-15 16:15 | Outpatient (REF) | payer SELFPAY ==
[2021-09-17 11:01] LABS: COVID-19 RT-PCR UVMMC Result Negative (Negative)
== END 2021-09-15 16:16 | disposition home or self-care (01) ==
LOC: LBN 16:15
PROVIDERS: PCP Student in an Organized Health Care Education/Training Program; Visit Provider Nurse Practitioner Family
DX: Z20.822 Contact with and (suspected) exposure to COVID-19 (principal)
CPT/HCPCS: U0003

== ENCOUNTER 2021-09-30 13:37 | Outpatient (REF) | payer SELFPAY ==
[2021-10-02 14:31] LABS: COVID-19 RT-PCR UVMMC Result Negative (Negative)
== END 2021-09-30 13:38 | disposition home or self-care (01) ==
LOC: LBN 13:37
PROVIDERS: PCP Student in an Organized Health Care Education/Training Program; Visit Provider Student in an Organized Health Care Education/Training Program
DX: R06.02 Shortness of breath (principal); R05.8 Other specified cough; J45.901 Unspecified asthma with (acute) exacerbation; Z20.822 Contact with and (suspected) exposure to COVID-19
CPT/HCPCS: 87449; U0003

== ENCOUNTER 2021-10-05 00:58 | Outpatient (CLI) | payer SELFPAY ==
--- NOTE | 2021-10-05 07:00 | DI.RAD_ITS ---
Exam(s) XR CHEST 2V PA LATERAL EXAM: XR CHEST 2V PA LATERAL CLINICAL HISTORY: r/o pneumonia,PROB SEVERE ASTHMA VS INFECTIOUS PROCESS, SOB, COUGH,R06.02. TECHNIQUE: 2D digital imaging was performed. COMPARISON: No exams were available for comparison FINDINGS: Heart size is normal. The mediastinum is not widened. Lungs are clear. No infiltrates nor pleural effusions. IMPRESSION: No acute pulmonary findings. DATA REPOSITORY: RADIATION DOSE DELIVERED:
== END 2021-10-05 01:18 ==
PROVIDERS: PCP Student in an Organized Health Care Education/Training Program; Visit Provider Student in an Organized Health Care Education/Training Program
DX: R06.02 Shortness of breath (principal); R05.8 Other specified cough; J45.901 Unspecified asthma with (acute) exacerbation
CPT/HCPCS: 71046

== ENCOUNTER 2021-10-07 01:58 | Outpatient (CLI) | payer MEDICAID, SELFPAY ==
[2021-10-07] MEDS: Albuterol HFA 18 GM 200 PUFF INH IH (11:22)
[2021-10-07] MEDS: Inhaler, Assist Device 1 EACH MC (11:22)
--- NOTE | 2021-10-17 09:39 | W.PFT ---
Date of service: 10/07/21 Time of Service: 10:06 Pulmonary Function Test Result Requesting Provider Concepcion Santiago Indications: Asthma Interpretation Spirometry: There is no airflow limitation. There is no significant bronchodilator effect Lung Volumes: Lung volumes are normal Diffusion Capacity: Diffusion is normal Airway Pressure: Airways resistance is normal Impression Normal Pulmonary Function Test Clinical Correlation therefore is recommended.
== END 2021-10-07 01:59 | disposition home or self-care (01) ==
LOC: RT 02:02
PROVIDERS: PCP Student in an Organized Health Care Education/Training Program; Visit Provider Student in an Organized Health Care Education/Training Program
DX: J45.909 Unspecified asthma, uncomplicated (principal); Z86.16 Personal history of COVID-19; Z87.01 Personal history of pneumonia (recurrent); Z83.6 Family history of other diseases of the respiratory system
CPT/HCPCS: 94060; 94726; 94729

== ENCOUNTER 2021-10-17 00:54 | Outpatient (CLI) | payer MEDICAID, SELFPAY ==
--- NOTE | 2021-10-17 14:25 | DI.MAMMO_ITS ---
Exam(s) MAMMO SCREENING EXAM: MAMMO SCREENING CLINICAL HISTORY: screening TECHNIQUE: Mammograms were interpreted according to the usual protocol including computer analysis w [employer] CAD system, tomosynthesis and C-view imaging. COMPARISON: 2018 and 2019 FINDINGS: The breasts are composed of heterogeneously dense fibroglandular densities, Breast Density category C . No suspicious masses or suspicious microcalcifications are seen. No skin thickening or abnormal axillary lymph nodes are seen. There has been no significant change from prior exams. IMPRESSION: BI-RADS Category 1, Negative mammogram. Yearly screening mammography is recommended. Breast Density Category C, heterogeneously Dense. The mammogram demonstrates the patient's breast tissue is dense. Dense breast tissue is very common a nd is not abnormal but dense breast tissue can make it harder to find cancer on a mammogram. Also, de nse breast tissue may increase breast cancer risk. This information about the result of the mammogram report was provided to the patient to raise their awareness. Use this report when you speak with the patient about their risks for breast cancer, which includes their family history. At that time, you may recommend additional screening tests (Ultrasound or MRI) as they might be useful based on their r isk. A negative radiographic report should not delay biopsy if a dominant or clinically suspicious mass is present. Up to ten percent of cancers are not identified on mammography. A negative report may reinforce clinical impression. Adenosis and dense breasts may obscure an underlying neoplasm. False positive reports average 6 to 10%.
== END 2021-10-17 01:14 ==
PROVIDERS: PCP Student in an Organized Health Care Education/Training Program; Visit Provider Nurse Practitioner Women's Health
DX: Z12.31 Encounter for screening mammogram for malignant neoplasm of breast (principal); R92.8 Other abnormal and inconclusive findings on diagnostic imaging of breast
CPT/HCPCS: 77063; 77067

== ENCOUNTER 2021-11-28 16:45 | Outpatient (REF) | payer MEDICAID, SELFPAY ==
[2021-11-28 14:09] LABS: Abs Immature Grans 0.04 10^3/uL (0.0-0.06); Absolute Basophil Count 0.05 10^3/uL (0.0-0.2); Absolute Eosinophil Count 0.08 10^3/uL (0.0-0.7); Absolute Lymphocyte Count 1.23 10^3/uL (1.2-3.4); Absolute Neutrophil Count 3.41 10^3/uL (1.2-6.7); Eosinophils % 1.5; HCT 40.9 % (36.0-46.0); Immature Grans % 0.8; Lymphocytes % 23.6; MCH 32.8 pg (27.0-33.0); MCHC 34.2 % (32.0-36.0); MCV 95.8 fL (80-95); Monocytes % 7.7; Neutrophils % 65.4; Nucleated RBC 0 %; Platelet Count 256 10^3/uL (130-400); RBC 4.27 10^6/uL (3.93-5.22); RDW-SD 41.5 fL; WBC 5.21 10^3/uL (4.4-10.8)
[2021-11-30 09:01] LABS: IgE 3 IU/mL (<158)
== END 2021-11-28 16:46 | disposition home or self-care (01) ==
LOC: LBN 16:45
PROVIDERS: PCP Student in an Organized Health Care Education/Training Program; Visit Provider Student in an Organized Health Care Education/Training Program
DX: J45.909 Unspecified asthma, uncomplicated (principal)
CPT/HCPCS: 82785; 85025

== ENCOUNTER 2022-10-05 15:29 | Observation (INO) | payer SELFPAY ==
[2022-10-05] VITALS (39 sets, daily range): BP systolic 110–135; BP diastolic 60–110; PULSE 57–70; RESP 20; TEMP 36.4; O2SAT 83–100
--- NOTE | 2022-10-05 16:45 | DI.CT_ITS ---
Exam(s) CT LUMBAR SPINE RECONS EXAM: CT LUMBAR SPINE RECONS CLINICAL HISTORY: pain paraspinal muscles,. TECHNIQUE: Imaging Protocol: Axial computed tomography images with coronal and sagittal reformatted images were created and reviewed COMPARISON: CT CT CHEST PE CTA from 03/07/2021 FINDINGS: Bones: No compression fractures. No osseous lesions.. Disc spaces exhibit normal height with the e xception of L3-4 disc space. More prominent narrowing of the right side than left side of the disc s pace and results in an element of scoliosis convex left with epicenter at this level. There is very mild degenerative anterolisthesis of L4 upon L5 due to facet arthropathy at this level. The disc space at this level is normal. PARASPINAL SOFT TISSUES: Visualized paraspinal tissues appear unremarkable. IMPRESSION: 1. No evidence of acute fracture of the lumbar vertebrae. 2. Other nonacute findings as above. 3. No incidental osseous lesions. RADIATION DOSE DELIVERED: 1,088.27mGy.cm Total DLP DATA REPOSITORY: All CT scans at this facility are submitted to the National Radiology Data Registry (NRDR) Dose Index Registry (DIR) with the [employer] (ACR). RADIATION OPTIMIZATION: All CT scans at this facility use at least one of these dose optimization te chniques: automated exposure control; mA and/or kV adjustment per patient size (includes targeted exa ms where dose is matched to clinical indication); or iterative reconstruction.
--- NOTE | 2022-10-05 16:50 | DI.CT_ITS ---
Exam(s) CT ABDOMEN PELVIS W EXAM: CT ABDOMEN PELVIS W CLINICAL HISTORY: left flank and back pain. TECHNIQUE: Imaging Protocol: Axial computed tomography images with coronal and sagittal reformatted images were created and reviewed CONTRAST MATERIAL: Intravenous: Omnipaque 100cc Oral: None COMPARISON: CT CT LUMBAR SPINE RECONS from 10/05/2022 FINDINGS: VISUALIZED LUNG BASES: No nodules nor pleural effusions evident. ABDOMEN: There is no ascites. LIVER: There are no focal hepatic lesions evident . GALLBLADDER/BILIARY: No obvious gallbladder pathology. CBD is not dilated. PANCREAS: No evidence of pancreatic mass nor dilatation of the pancreatic duct. SPLEEN: Spleen is not enlarged. No obvious intrasplenic lesions. Splenic and portal veins are paten t. ADRENALS: There are no significant adrenal masses. KIDNEYS:No cysts evident. No solid renal masses. No calculi nor hydronephrosis.. ABDOMINAL AORTA: Abdominal aorta is not enlarged. LYMPH NODES:There is no retroperitoneal nor paraaortic adenopathy. ABDOMINAL WALL: No evidence of significant anterior abdominal wall nor inguinal hernia. GI: There is no evidence of bowel obstruction, free air, nor abscess. PELVIS: GI: No evidence of appendicitis.No evidence of sigmoid diverticulitis. LYMPH NODES: There is no intrapelvic nor inguinal adenopathy. REPRODUCTIVE: Uterus unremarkable. Right adnexa unremarkable. The left ovary appears slightly promi nent, measuring 3.5 by 2.6 cm and contains cysts. No free fluid in the left adnexa nor in the cul-de -sac. URINARY BLADDER: No calculi nor obvious masses evident OSSEOUS: No fractures nor significant osseous lesions. IMPRESSION: 1. No significant acute findings in the abdomen pelvis. 2. Mildly prominent size left ovary which is multi cystic. Recommend follow-up transvaginal ultrasou nd. Right adnexa unremarkable. No free fluid. 3. No renal findings. No hydronephrosis. RADIATION DOSE DELIVERED: Total DLP DATA REPOSITORY: All CT scans at this facility are submitted to the National Radiology Data Registry (NRDR) Dose Index Registry (DIR) with the [employer] (ACR). RADIATION OPTIMIZATION: All CT scans at this facility use at least one of these dose optimization te chniques: automated exposure control; mA and/or kV adjustment per patient size (includes targeted exa ms where dose is matched to clinical indication); or iterative reconstruction.
[2022-10-05 17:02] LABS: Source Nasal/Nares
[2022-10-05 17:06] LABS: Abs Immature Grans 0.02 10^3/uL (0.0-0.06); Absolute Basophil Count 0.04 10^3/uL (0.0-0.2); Absolute Eosinophil Count 0.07 10^3/uL (0.0-0.7); Absolute Lymphocyte Count 1.62 10^3/uL (1.2-3.4); Absolute Monocyte Count 0.46 10^3/uL (0.1-0.8); Absolute Neutrophil Count 3.27 10^3/uL (1.2-6.7); Basophils % 0.7; Eosinophils % 1.3; HCT 40.5 % (36.0-46.0); HGB 13.8 g/dL (11.2-15.7); Immature Grans % 0.4; Lymphocytes % 29.6; MCHC 34.1 % (32.0-36.0); MCV 94 fL (80-95); MPV 9.6 fL (8.0-11.0); Monocytes % 8.4; Neutrophils % 59.6; Platelet Count 206 10^3/uL (130-400); RBC 4.31 10^6/uL (3.93-5.22); RDW 11.6 % (11.7-14.6); WBC 5.48 10^3/uL (4.4-10.8)
[2022-10-05] MEDS: Dexamethasone 4 MG/ML VIAL IVP (17:08)
[2022-10-05] MEDS: HYDROmorphone 2 MG/ML SYR 1 MG IVP (17:09)
[2022-10-05 17:26] LABS: ALT 19 U/L (14-59); AST 18 U/L (15-37); Albumin 3.9 g/dL (3.4-5.0); Alkaline Phosphatase 66 U/L (46-116); Anion Gap 8.7 mmol/L (3-11); BUN 9 mg/dL (7-18); Bilirubin, Total 0.5 mg/dL (0.2-1.0); C-Reactive Protein 0.11 mg/dL (0.0-0.3); CO2 28.3 mmol/L (21.0-32.0); CREATININE 0.9 mg/dL (0.55-1.02); Calcium 9.1 mg/dL (8.5-10.1); Chloride 106 mmol/L (98-107); Estimated GFR 77.88 (mL/min/1.73m2); Glucose 88 mg/dL (74-106); Lipase 83 U/L (73-393); Potassium 3.3 mmol/L (3.5-5.1); Sodium 143 mmol/L (136-145); Total Protein 7.1 g/dL (6.4-8.2)
[2022-10-05 17:40] LABS: COVID-19 PCR Negative (Negative)
[2022-10-05 18:00] LABS: Bilirubin Negative (Negative); Blood Negative (Negative); Clarity Clear (Clear); Glucose Negative (Negative); Ketones Negative (Negative); Leukocyte Esterase Negative (Negative); Nitrite Negative (Negative); Specific Gravity 1.015 (1.005-1.025); Urobilinogen 0.2 EU/dL (Up TO 0.2); pH 7.5 (5-8)
[2022-10-05] MEDS: Normal Saline - Diluent 50 ML VIAL IV (18:03)
[2022-10-05] MEDS: Normal Saline Flush 10 ML SYR IVP (18:04)
[2022-10-05] MEDS: Omnipaque 350 MG/ML 100 ML BTL IJ (18:04)
--- NOTE | 2022-10-05 18:32 | DI.VRAD_ITS ---
PROCEDURE INFORMATION: Exam: CT Abdomen And Pelvis With Contrast Exam date and time: 10/05/2022 5:35 PM Age: 52 years old Clinical indication: Other: Left flank and back pain TECHNIQUE: Imaging protocol: Computed tomography of the abdomen and pelvis with contrast. Contrast material: OMNIPAQUE 350; Contrast volume: 100 ml; Contrast route: INTRAVENOUS (IV); COMPARISON: CT CHEST PE CTA 03/07/2021 11:54 PM FINDINGS: Lungs: The visualized portions of the lung bases are normal. Liver: Normal. No mass. Gallbladder and bile ducts: Normal. No calcified stones. No ductal dilation. Pancreas: Normal. No ductal dilation. Spleen: Normal. No splenomegaly. Adrenal glands: Normal. No mass. Kidneys and ureters: Normal. No hydronephrosis. Stomach and bowel: Unremarkable. No obstruction. No mucosal thickening. Appendix: No evidence of appendicitis. Intraperitoneal space: Unremarkable. No free air. No significant fluid collection. Vasculature: Unremarkable. No abdominal aortic aneurysm. Lymph nodes: Unremarkable. No enlarged lymph nodes. Urinary bladder: Unremarkable as visualized. Reproductive: Mildly complex left adnexal cystic mass measuring 3.4 cm. Bones/joints: Unremarkable. No acute fracture. Soft tissues: Unremarkable. IMPRESSION: 1. No evidence of acute abdominal or pelvic process. No renal stone or hydronephrosis. 2. Mildly complex left adnexal cystic mass measuring 3.4 cm. Further evaluation with prompt non-emergent ultrasound or prompt non-emergent MRI is recommended to characterize. (Reference: Emery) References: Emery et al. Management of Incidental Adnexal Findings on CT and MRI: A White Paper of the ACR Incidental Findings Committee, J Am Froylan Radiol. 2019;17(2):248-254. Dictated and Authenticated by: Chidi Martin MD. Ordering:FERNY Richey MD
[2022-10-05] MEDS: diazePAM 10 MG/2 ML SYR 2.5 MG IVP (18:38)
--- NOTE | 2022-10-05 19:02 | DI.VRAD_ITS ---
PROCEDURE INFORMATION: Exam: CT Lumbar Spine Without Contrast Exam date and time: 10/05/2022 5:35 PM Age: 52 years old Clinical indication: Other: Left flank and back pain TECHNIQUE: Imaging protocol: Computed tomography of the lumbar spine without contrast. COMPARISON: No relevant prior studies available. FINDINGS: Bones/joints: The lumbar spine demonstrates mild degenerative changes at multiple levels. The facet joints demonstrate mild degenerative hypertrophy and sclerosis. There is no evidence of acute fracture. Soft tissues: Unremarkable. IMPRESSION: 1. The lumbar spine demonstrates mild degenerative changes at multiple levels. 2. No evidence of acute fracture. Dictated and Authenticated by: Jayy Whitney MD. Ordering:FERNY Richey MD
[2022-10-05] MEDS: diazePAM 10 MG/2 ML SYR 5 MG IVP (19:35)
[2022-10-05] MEDS: oxyCODONE 5 MG TAB PO (19:46)
[2022-10-05] MEDS: Ketorolac 15 MG/ML VIAL IVP (19:47)
--- NOTE | 2022-10-05 20:43 | ED.GENADUL_ITS ---
Discharge Plan Disposition Patient Disposition: [facility] INPATIENT Condition: Stable Discharge Details Clinical Impression: Back pain Primary Care Provider: Concepcion Santiago ED Provider: Rossi Burch Home Meds and New Rx's Prescriptions: No Action albuterol sulfate 90 mcg/actuation HFA aerosol inhaler 1 - 2 puff inhalation Q4H PRN (Reason: shortness of breath or wheezing) Qty: 1 0RF Rx Instructions: Dispense brand of albuterol inhaler covered by patient's insurance levalbuterol tartrate 45 mcg/actuation HFA aerosol inhaler 2 inh inhalation Q6H Qty: 15 8RF budesonide-formoterol [Symbicort] 160-4.5 mcg/actuation HFA aerosol inhaler 1 puff inhalation BID levalbuterol HCl [Xopenex] 1.25 mg/3 mL solution for nebulization 1.25 mg inhalation Q4H PRN (Reason: shortness of breath or wheezing) Qty: 75 1RF [place] Saline Gel 1 applic topical 8-12XD PRN (Reason: dry nasal passages) Qty: 14.1 1RF potassium gluconate 550 mg (90 mg) tablet 550 mg PO DAILY baclofen 10 mg tablet 10 mg PO TID PRN (Reason: muscle spasm) Qty: 30 1RF Rx Instructions: Trial for lower back mm spasm diazepam 2 mg tablet 2 mg PO BID PRN (Reason: anxiety) Qty: 10 0RF lysine 1,000 mg tablet 1,000 mg PO DAILY ipratropium bromide 0.02 % solution 2.5 ml inhalation Q6H PRN (Reason: shortness of breath or wheezing) Qty: 75 1RF cetirizine [Zyrtec] 10 mg Tablet 10 mg PO BID Medical Decision Making CT abdomen and pelvis displays 3.4 cm ovarian cyst, very low suspicion for torsion given size and lack of CT evidence of torsion Case discussed with Dr. Bhatia agreeable to assess patient tomorrow should she have persistent pain although very low suspicion for this pathology Suspect patient's pain is musculoskeletal in nature although she is received numerous opiate and benzodiazepine including Decadron, Toradol without alleviation in her symptoms Given her persistent pain, she will be admitted to the hospital Dr. House is agreeable to admitting No clinical evidence of cauda equina syndrome clinically, nonfocal neurological exam HPI General Date/Time Provider Initiated Documentation: 10/05/22 16:04 . HPI Narrative: this 52-year-old female presents with back pain which radiates into her hip. She denies any strength or sensation change. She denies any groin numbness or tingling. She denies any fever chills or history of IV drug abuse. Her pain is exacerbated with movement. She states also on her left lower quadrant. States the pain is exacerbated with movement. Denies any recent falls or injuries. She denies history of similar pain in the past. Denies any strength or sensation changes to her extremities. Denies chance of . Describes the pain as sharp and stabbing. She also reports a spasm-like pain. Related Data Home Medications Medication Instructions Recorded Confirmed cetirizine 10 mg tablet (Zyrtec) 10 mg PO BID 08/12/19 10/05/22 lysine 1,000 mg tablet 1,000 mg PO DAILY 04/14/21 10/05/22 albuterol sulfate 90 mcg/actuation 1 - 2 puff inhalation Q4H PRN 09/15/21 10/05/22 aerosol inhaler shortness of breath or wheezing #1 unit levalbuterol tartrate 45 2 inh inhalation Q6H prn for 11/28/21 10/05/22 mcg/actuation aerosol inhaler wheezing or shortness of breath #15 grams budesonide-formoterol HFA 160 1 puff inhalation BID 03/07/22 10/05/22 mcg-4.5 mcg/actuation aerosol inhaler (Symbicort) levalbuterol HCl 1.25 mg/3 mL 1.25 mg (3 mL) inhalation Q4H PRN 03/10/22 10/05/22 solution for nebulization (Xopenex) shortness of breath or wheezing #75 mL sodium chloride-aloe vera nasal 1 applic topical 8-12XD PRN dry 04/04/22 10/05/22 gel ([place] Saline nasal gel) nasal passages #14.1 grams ipratropium bromide 0.02 % 2.5 ml inhalation Q6H PRN 04/27/22 10/05/22 solution for inhalation shortness of breath or wheezing #75 mL baclofen 10 mg tablet 10 mg PO TID PRN muscle spasm #30 10/05/22 10/05/22 tabs diazepam 2 mg tablet 2 mg PO BID PRN anxiety #10 tabs 10/05/22 10/05/22 potassium gluconate 550 mg (90 mg) 550 mg PO DAILY 10/05/22 10/05/22 tablet Previous Rx's Medication Instructions Recorded albuterol sulfate 90 mcg/actuation 1 - 2 puff inhalation Q4H PRN 09/15/21 aerosol inhaler shortness of breath or wheezing #1 unit levalbuterol tartrate 45 2 inh inhalation Q6H prn for 11/28/21 mcg/actuation aerosol inhaler wheezing or shortness of breath #15 grams levalbuterol HCl 1.25 mg/3 mL 1.25 mg (3 mL) inhalation Q4H PRN 03/10/22 solution for nebulization (Xopenex) shortness of breath or wheezing #75 mL sodium chloride-aloe vera nasal 1 applic topical 8-12XD PRN dry 04/04/22 gel ([place] Saline nasal gel) nasal passages #14.1 grams ipratropium bromide 0.02 % 2.5 ml inhalation Q6H PRN 04/27/22 solution for inhalation shortness of breath or wheezing #75 mL baclofen 10 mg tablet 10 mg PO TID PRN muscle spasm #30 10/05/22 tabs diazepam 2 mg tablet 2 mg PO BID PRN anxiety #10 tabs 10/05/22 Allergies Allergy/AdvReac Type Severity Reaction Status Date / Time Penicillins Allergy Mild Skin Rash Verified 10/05/22 13:04 meperidine [From Demerol] AdvReac Intermediate vomiting Verified 10/05/22 13:04 procaine [From Novocain] AdvReac Mild doesn't Verified 10/05/22 13:04 wear-off hay fever Allergy Intermediate Wheezing Uncoded 10/05/22 13:04 General Stated Complaint: FlankPain DYLAN: 3 Review of Systems All systems reviewed & are unremarkable except as noted in HPI and below PFSH All Active Problems (Updated 10/05/22 @ 23:16 by PITA Bhat) Back pain (Acute) Ilio-inguinal strain (Acute) Pelvic pain (Acute) Shingles outbreak (Acute) #3 this past 2021! Pain of back and lower extremity (Acute) Left, assoc w/ constipation .. but no clear relief with BM Medication side effect (Acute) Headache, head/sinus pain with Symbicort. Tolerable @ 1/2 dose. Hx of status asthmaticus (Acute) Seasonal allergies (Acute) Hx of lymphadenopathy (Acute) when ill Asthma (Chronic) shaunna w/ allergies Racing heart beat (Acute) Seems since COVID+ (February 2020), [id number]-Restart. [ ] monitor Coccygeal pain, acute (Acute) Seems since colonoscopy .. quite tender, affecting ADL. [ ] Pelvic PT Left knee injury (Chronic) Blunt hit on knee-cap (focal lateral pain, tenderness) Urinary frequency (Acute) History of bronchitis (Chronic) Especially as child, cared for by Dr. Duarte. Hx [facility] for pulm eval.. History of COVID-19 (Chronic) February 2021. Lingering SOB. No plans for vaccine as of 04/2021. [place] be [place] [facility] [place]. Shortness of breath (Acute) Lingering since February 2020 COVID+ (Hx walking 9m/day .. now maybe 2). IUD surveillance (Acute ~11/2020) Mirena Family history of colon cancer (Chronic) [place] 2 years ago, 5yr recall (Mo & Fa w/ colon cancer). 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 Medical History Asthma exacerbation attacks Pt has lingering cough and SOB x months .. Hx COVID. Probable asthma exacerbation complicated by numerous ABx and mixed Tx. [ ] CXR [ ] Pulm Hx of iron deficiency anemia 1st Surgical History History of dental surgery Family History Paternal Grandfather Colon cancer Paternal Aunt Colon cancer Paternal Aunt Colon cancer Father Colon cancer Allergies Asthma Brother Myocardial infarct Substance abuse alcohol Hyperplastic colon polyp Heart disease Alcohol abuse Asthma Maternal Grandfather Prostate cancer Daughter Allergies Asthma Son Allergies Asthma Social History Smoking/Tobacco Use Status: Former Tobacco Use Quit Date: 11/26/94 Tobacco: How many years used: 3 Smoking risk assessment performed?: Yes Alcohol Intake: current Alcohol Intake frequency: a few times a week Alcohol type: beer and hard liquor Drug use: Rarely Substance use type: marijuana Details: no IV drug use Adopted: No Caregiver/Support person: No Foster care: No Household members: family Housing: house Sexually active: Yes Do you think of yourself as: straight/heterosexual Current gender identity: female Do you feel safe at home: Yes Do you feel safe in your relationship?: Yes Female Reproductive History Menstrual Age of Menarche: 17 control method: other ( with vasectomy) History History 5 Para 4 Hx # Term Pregnancies Multiple births Hx # Pregnancies Ectopic pregnancies AB induced Hx Number of Living Children AB spontaneous Exam Const General: cooperative and comfortable HENMT Head: normal to inspection Eyes Pupils: PERRL Resp Effort & Inspection: normal respiratory effort Auscultation: clear to auscultation bilaterally Cardio Rate: regular rate Rhythm: regular rhythm GI Inspection: normal to inspection Other: non-tender abdominal exam no cva tenderness Back/Spine/Pelvis Back: CVA tenderness Other: Left paraspinal muscle tenderness No midline tenderness Skin General skin exam: no rashes or lesions noted Neuro General: patient alert and patient oriented x3 Other: Negative straight leg raise, DTRs intact distally, strength and sensation intact distally, ambulatory with steady gait Extrem Other: No left hip tenderness Course Vital Signs Vital signs: Vital Signs Temperature 36.4 C 10/05/22 15:35 Pulse 70 10/05/22 15:35 Respiratory Rate 20 10/05/22 15:35 Blood Pressure 134/110 H 10/05/22 15:35 Pulse Oximetry 100 10/05/22 15:35 Temperature 36.4 C 10/05/22 15:35 Temperature Source Temporal Artery Scan 10/05/22 15:35 Pulse 70 10/05/22 15:35 Respiratory Rate 20 10/05/22 15:35 Respiratory Effort Non-Labored 10/05/22 15:39 Blood Pressure 134/110 H 10/05/22 15:35 Blood Pressure Position Sitting 10/05/22 15:35 Pulse Oximetry 93 10/05/22 20:10 Oxygen Delivery Method Room Air 10/05/22 15:35 Oxygen Flow Rate 0 10/05/22 15:35 Pain Level 9 10/05/22 19:47 Lab/Test Results Lab/Test Results: Laboratory Tests Range/Units 10/05/22 10/05/22 10/05/22 16:18 16:57 16:58 WBC (4.4-10.8) 10^3/uL RBC (3.93-5.22) 10^6/uL Hgb (11.2-15.7) g/dL Hct (36.0-46.0) % MCV (80-95) fL MCH (27.0-33.0) pg MCHC (32.0-36.0) % RDW (11.7-14.6) % Plt Count (130-400) 10^3/uL MPV (8.0-11.0) fL Immature Gran % Neutrophils % Lymphocytes % Monocytes % Eosinophils % Basophils % Nucleated RBC % (0.0-0.3) % Absolute Neutrophils (1.2-6.7) 10^3/uL Absolute Lymphocytes (1.2-3.4) 10^3/uL Absolute Monocytes (0.1-0.8) 10^3/uL Absolute Eosinophils (0.0-0.7) 10^3/uL Absolute Basophils (0.0-0.2) 10^3/uL Sodium (136-145) mmol/L 143 Potassium (3.5-5.1) mmol/L 3.3 L Chloride (98-107) mmol/L 106 Carbon Dioxide (21.0-32.0) mmol/L 28.3 Anion Gap (3-11) mmol/L 8.7 BUN (7-18) mg/dL 9 Creatinine (0.55-1.02) mg/dL 0.9 Est GFR (CKD-EPI 2020) (mL/min/1.73m2) 77.88 Glucose (74-106) mg/dL 88 Calcium (8.5-10.1) mg/dL 9.1 Total Bilirubin (0.2-1.0) mg/dL 0.5 AST (15-37) U/L 18 ALT (14-59) U/L 19 Alkaline Phosphatase (46-116) U/L 66 C-Reactive Protein (0.0-0.3) mg/dL 0.11 Total Protein (6.4-8.2) g/dL 7.1 Albumin (3.4-5.0) g/dL 3.9 Lipase (73-393) U/L 83 Urine Color (Yellow) Straw Urine Clarity (Clear) Clear Urine pH (5-8) 7.5 Ur Specific Garner (1.005-1.025) 1.015 Urine Protein (Negative) mg/dL Negative Urine Ketones (Negative) mg/dL Negative Urine Blood (Negative) Negative Urine Nitrite (Negative) Negative Urine Bilirubin (Negative) Negative Urine Urobilinogen (Up TO 0.2) EU/dL 0.2 Ur Leukocyte Esterase (Negative) Negative Urine Glucose (Negative) mg/dL Negative COVID-19 Source Nasal/Nares SARS-CoV-2 (PCR) (Negative) Negative Range/Units 10/05/22 16:58 WBC (4.4-10.8) 10^3/uL 5.48 RBC (3.93-5.22) 10^6/uL 4.31 Hgb (11.2-15.7) g/dL 13.8 Hct (36.0-46.0) % 40.5 MCV (80-95) fL 94 MCH (27.0-33.0) pg 32.0 MCHC (32.0-36.0) % 34.1 RDW (11.7-14.6) % 11.6 L Plt Count (130-400) 10^3/uL 206 MPV (8.0-11.0) fL 9.6 Immature Gran % 0.4 Neutrophils % 59.6 Lymphocytes % 29.6 Monocytes % 8.4 Eosinophils % 1.3 Basophils % 0.7 Nucleated RBC % (0.0-0.3) % 0.0 Absolute Neutrophils (1.2-6.7) 10^3/uL 3.27 Absolute Lymphocytes (1.2-3.4) 10^3/uL 1.62 Absolute Monocytes (0.1-0.8) 10^3/uL 0.46 Absolute Eosinophils (0.0-0.7) 10^3/uL 0.07 Absolute Basophils (0.0-0.2) 10^3/uL 0.04 Sodium (136-145) mmol/L Potassium (3.5-5.1) mmol/L Chloride (98-107) mmol/L Carbon Dioxide (21.0-32.0) mmol/L Anion Gap (3-11) mmol/L BUN (7-18) mg/dL Creatinine (0.55-1.02) mg/dL Est GFR (CKD-EPI 2020) (mL/min/1.73m2) Glucose (74-106) mg/dL Calcium (8.5-10.1) mg/dL Total Bilirubin (0.2-1.0) mg/dL AST (15-37) U/L ALT (14-59) U/L Alkaline Phosphatase (46-116) U/L C-Reactive Protein (0.0-0.3) mg/dL Total Protein (6.4-8.2) g/dL Albumin (3.4-5.0) g/dL Lipase (73-393) U/L Urine Color (Yellow) Urine Clarity (Clear) Urine pH (5-8) Ur Specific [place] (1.005-1.025) Urine Protein (Negative) mg/dL Urine Ketones (Negative) mg/dL Urine Blood (Negative) Urine Nitrite (Negative) Urine Bilirubin (Negative) Urine Urobilinogen (Up TO 0.2) EU/dL Ur Leukocyte Esterase (Negative) Urine Glucose (Negative) mg/dL COVID-19 Source SARS-CoV-2 (PCR) (Negative)
[2022-10-05] MEDS: ACETAMINOPHEN 1,000 MG/100 ML BTL 400 MG IVPB (21:46)
--- NOTE | 2022-10-05 23:22 | HPE_ITS ---
Date of service: 10/05/22 Time of Service: 23:22 Assessment and Plan Assessment and plan (1) Back pain: Status: Acute Assessment and plan: I suspect she has a herniated lumbar disc on the left. I believe this is causing her left sciatica. We will schedule an MRI tomorrow to evaluate this. In the meantime we will have her in analgesics and steroids. (2) Ovarian cyst: Status: Acute Assessment and plan: Do not think ovarian cyst is causing this back pain. The emergency department consulted the private investigator surveillance on-call and I will put in for a consult for tomorrow. An ultrasound would be advisable. (3) Hypokalemia: Status: Acute Assessment and plan: Her potassium was a bit low today at 3.3. She will be given supplemental potassium and this will be rechecked tomorrow. History of Present Illness History of Present Illness Chief Complaint: Low back pain Narrative: This 62-year-old female is here because of low back pain. Started in mid July of this year without any specific injury. She does not have a job outside the home. The pain got acutely worse 3 days ago at 3 AM in the middle of the night. She did help her move some firewood a couple days before that but it was not much stress as they say there were 8 people moving 2 quarts of firewood. The pain radiates down her left leg into her knee. She has had no specific injuries. Her pain is worse when she walks or goes upstairs or sits. The pain is also worse when her bladder is full. Coughing and sneezing and vomiting make the pain worse. She has had no problems with her bowel or bladder. She says marijuana cookies to help her sleep some at night and this helps the pain. She drinks about twice a week and does not use tobacco. She went to see her doctor today who prescribed some muscle relaxants but while she was waiting for the medicines to be picked up her pain got worse and she came here to the hospital to be seen. The pain was about 10 out of 10 intensity. In the emergency department she has had a CTA of her lumbar spine and abdomen pelvis. No abnormalities are noted except a cyst over her left ovary that is a complex cyst. She was given approximately 3 mg of hydromorphone, 7 and half milligrams diazepam and steroids and her pain is about a 3 out of 10 now but she does not see how she can go home with this much discomfort. Whenever she moves the pain gets much worse. She lives at home with her and 2 sons. She says she has had reactions to vaccines in the past and does not want the coronavirus vaccine. She has had COVID twice. She does have a history of asthma. All Review of Systems Constitutional Constitutional: Denies chills, Denies fever(s) and Denies weakness Cardiovascular Cardiovascular: Denies chest pain and Reports dyspnea on exertion Respiratory Respiratory: Denies cough and Reports dyspnea on exertion Gastrointestinal Gastrointestinal: Reports nausea and Reports vomiting Genitourinary Genitourinary: Denies difficulty voiding and Denies urinary incontinence Musculoskeletal Musculoskeletal: Denies numbness Neurologic Neurologic: Denies numbness, Reports radicular pain and Denies weakness PFSH All Active Problems (Updated 10/05/22 @ 23:32 by Griffin Atkins MD) Hypokalemia (Acute) Ovarian cyst (Acute) Back pain (Acute) Ilio-inguinal strain (Acute) Pelvic pain (Acute) Shingles outbreak (Acute) #3 this past 2021! Pain of back and lower extremity (Acute) Left, assoc w/ constipation .. but no clear relief with BM Medication side effect (Acute) Headache, head/sinus pain with Symbicort. Tolerable @ 1/2 dose. Hx of status asthmaticus (Acute) Seasonal allergies (Acute) Hx of lymphadenopathy (Acute) when ill Asthma (Chronic) shaunna w/ allergies Racing heart beat (Acute) Seems since COVID+ (February 2020), [id number]-Restart. [ ] monitor Coccygeal pain, acute (Acute) Seems since colonoscopy .. quite tender, affecting ADL. [ ] Pelvic PT Left knee injury (Chronic) Blunt hit on knee-cap (focal lateral pain, tenderness) Urinary frequency (Acute) History of bronchitis (Chronic) Especially as child, cared for by Dr. Duarte. Hx [facility] for pulm eval.. History of COVID-19 (Chronic) February 2021. Lingering SOB. No plans for vaccine as of 04/2021. May be interested in [facility] [place] [facility] for eval/research purposes. Shortness of breath (Acute) Lingering since February 2020 COVID+ (Hx walking 9m/day .. now maybe 2). IUD surveillance (Acute ~11/2020) Abi Family history of colon cancer (Chronic) [place] 2 years ago, 5yr recall (Mo & Fa w/ colon cancer). Cervical polyp (Acute) Resolved, no evidence of polyp @ aerosol supervisor visit, 11/2021. Medical History Asthma exacerbation attacks Pt has lingering cough and SOB x months .. Hx COVID. Probable asthma exacerbation complicated by numerous ABx and mixed Tx. [ ] CXR [ ] Pulm Hx of iron deficiency anemia 1st Surgical History History of dental surgery Family History Paternal Grandfather Colon cancer Paternal Aunt Colon cancer Paternal Aunt Colon cancer Father Colon cancer Allergies Asthma Brother Myocardial infarct Substance abuse alcohol Hyperplastic colon polyp Heart disease Alcohol abuse Asthma Maternal Grandfather Prostate cancer Daughter Allergies Asthma Son Allergies Asthma Social History Smoking/Tobacco Use Status: Former Tobacco Use Quit Date: 11/26/94 Tobacco: How many years used: 3 Smoking risk assessment performed?: Yes Alcohol Intake: current Alcohol Intake frequency: a few times a week Alcohol type: beer and hard liquor Drug use: Rarely Substance use type: marijuana Details: no IV drug use Adopted: No Caregiver/Support person: No Foster care: No Household members: family Housing: house Sexually active: Yes Do you think of yourself as: straight/heterosexual Current gender identity: female Do you feel safe at home: Yes Do you feel safe in your relationship?: Yes Female Reproductive History Menstrual Age of Menarche: 17 control method: other ( with vasectomy) History History 5 Para 4 Hx # Term Pregnancies Multiple births Hx # Pregnancies Ectopic pregnancies AB induced Hx Number of Living Children AB spontaneous Meds Allergies and Home Medications Allergies Allergy/AdvReac Type Severity Reaction Status Date / Time Penicillins Allergy Mild Skin Rash Verified 10/05/22 13:04 meperidine [From Demerol] AdvReac Intermediate vomiting Verified 10/05/22 13:04 procaine [From Novocain] AdvReac Mild doesn't Verified 10/05/22 13:04 wear-off hay fever Allergy Intermediate Wheezing Uncoded 10/05/22 13:04 Home Medications Medication Instructions Recorded Confirmed Type cetirizine 10 mg tablet (Zyrtec) 10 mg PO BID 08/12/19 10/05/22 History lysine 1,000 mg tablet 1,000 mg PO DAILY 04/14/21 10/05/22 History albuterol sulfate 90 mcg/actuation 1 - 2 puff inhalation Q4H PRN 09/15/21 10/05/22 Rx aerosol inhaler shortness of breath or wheezing #1 unit levalbuterol tartrate 45 2 inh inhalation Q6H prn for 11/28/21 10/05/22 Rx mcg/actuation aerosol inhaler wheezing or shortness of breath #15 grams budesonide-formoterol HFA 160 1 puff inhalation BID 03/07/22 10/05/22 History mcg-4.5 mcg/actuation aerosol inhaler (Symbicort) levalbuterol HCl 1.25 mg/3 mL 1.25 mg (3 mL) inhalation Q4H PRN 03/10/22 10/05/22 Rx solution for nebulization (Xopenex) shortness of breath or wheezing #75 mL sodium chloride-aloe vera nasal 1 applic topical 8-12XD PRN dry 04/04/22 10/05/22 Rx gel ([place] Saline nasal gel) nasal passages #14.1 grams ipratropium bromide 0.02 % 2.5 ml inhalation Q6H PRN 04/27/22 10/05/22 Rx solution for inhalation shortness of breath or wheezing #75 mL baclofen 10 mg tablet 10 mg PO TID PRN muscle spasm #30 10/05/22 10/05/22 Rx tabs diazepam 2 mg tablet 2 mg PO BID PRN anxiety #10 tabs 10/05/22 10/05/22 Rx potassium gluconate 550 mg (90 mg) 550 mg PO DAILY 10/05/22 10/05/22 History tablet Exam Const General: cooperative and in distress Resp Auscultation: clear to auscultation bilaterally Cardio Rate: regular rate Rhythm: regular rhythm Heart Sounds: S1 normal, S2 normal, no murmurs and no rubs GI Palpation: soft, no hepatosplenomegaly, not firm and nontender Neuro Other: There is no irritability with hip range of motion bilaterally. There is normal light touch sensation to both lower extremities. She has normal strength of both flexion and extension of her ankles as well as inversion and eversion. She has normal strength of knee extension bilaterally. Straight leg raising test is negative on the right but positive on the left at 30 degrees. Extrem General: normal to inspection, no clubbing, no cyanosis and no edema Results Labs Result diagrams: 10/05/22 16:58 10/05/22 16:58 Labs: Laboratory Results - last 24 hr 10/05/22 10/05/22 10/05/22 16:18 16:57 16:58 WBC RBC Hgb Hct MCV MCH MCHC RDW Plt Count MPV Immature Gran % Neutrophils % Lymphocytes % Monocytes % Eosinophils % Basophils % Nucleated RBC % Absolute Neutrophils Absolute Lymphocytes Absolute Monocytes Absolute Eosinophils Absolute Basophils Sodium 143 Potassium 3.3 L Chloride 106 Carbon Dioxide 28.3 Anion Gap 8.7 BUN 9 Creatinine 0.9 Est GFR (CKD-EPI 2020) 77.88 Glucose 88 Calcium 9.1 Total Bilirubin 0.5 AST 18 ALT 19 Alkaline Phosphatase 66 C-Reactive Protein 0.11 Total Protein 7.1 Albumin 3.9 Lipase 83 Urine Color Straw Urine Clarity Clear Urine pH 7.5 Ur Specific [place] 1.015 Urine Protein Negative Urine Ketones Negative Urine Blood Negative Urine Nitrite Negative Urine Bilirubin Negative Urine Urobilinogen 0.2 Ur Leukocyte Esterase Negative Urine Glucose Negative COVID-19 Source Nasal/Nares SARS-CoV-2 (PCR) Negative 10/05/22 16:58 WBC 5.48 RBC 4.31 Hgb 13.8 Hct 40.5 MCV 94 MCH 32.0 MCHC 34.1 RDW 11.6 L Plt Count 206 MPV 9.6 Immature Gran % 0.4 Neutrophils % 59.6 Lymphocytes % 29.6 Monocytes % 8.4 Eosinophils % 1.3 Basophils % 0.7 Nucleated RBC % 0.0 Absolute Neutrophils 3.27 Absolute Lymphocytes 1.62 Absolute Monocytes 0.46 Absolute Eosinophils 0.07 Absolute Basophils 0.04 Sodium Potassium Chloride Carbon Dioxide Anion Gap BUN Creatinine Est GFR (CKD-EPI 2020) Glucose Calcium Total Bilirubin AST ALT Alkaline Phosphatase C-Reactive Protein Total Protein Albumin Lipase Urine Color Urine Clarity Urine pH Ur Specific Bishop Urine Protein Urine Ketones Urine Blood Urine Nitrite Urine Bilirubin Urine Urobilinogen Ur Leukocyte Esterase Urine Glucose COVID-19 Source SARS-CoV-2 (PCR) Last Vital Signs Temp 36.4 C 10/05/22 15:35 Pulse 61 10/05/22 21:00 Resp 20 10/05/22 15:35 BP 124/65 10/05/22 21:00 Pulse Ox 95 10/05/22 21:01
[2022-10-06 00:33] VITALS: BP 137/80; PULSE 66; RESP 18; TEMP 36.5; O2SAT 99
[2022-10-06] MEDS: HYDROmorphone 2 MG TAB PO ×4 (00:50→11:19)
[2022-10-06 03:11] VITALS: BP 121/72; PULSE 64; RESP 18; TEMP 36.4; O2SAT 98
[2022-10-06] MEDS: Acetaminophen 325 MG TAB 650 MG PO ×2 (06:53→11:19)
[2022-10-06 07:21] VITALS: BP 124/81; PULSE 68; RESP 20; TEMP 36.8; O2SAT 94
[2022-10-06] MEDS: Budesonide/Formoterol 160/4.5 6 GM 60 PUFF INH IH (08:27)
[2022-10-06 08:34] LABS: Potassium 3.6 mmol/L (3.5-5.1)
[2022-10-06] MEDS: Normal Saline Flush 10 ML SYR IVP (08:49)
[2022-10-06] MEDS: Normal Saline 50 ML 200 ML IV (08:49)
[2022-10-06] MEDS: Cetirizine 10 MG TAB PO (08:50)
[2022-10-06] MEDS: Ketorolac 15 MG/ML VIAL IVP (08:50)
[2022-10-06] MEDS: predniSONE 20 MG TAB 60 MG PO (08:50)
--- NOTE | 2022-10-06 09:16 | INITIAL_ITS ---
- If Service Date Differs Date of service: 10/06/22 Time of Service: 09:16 Care Management Initial Assess REASON FOR HOSPITALIZATION:: Back pain PAST MEDICAL HISTORY/PAST SURGICAL HISTORY:: All Active Problems (Updated 10/05/22 @ 23:32 by Griffin Atkins MD). Hypokalemia (Acute). Ovarian cyst (Acute). Back pain (Acute). Ilio-inguinal strain (Acute). Pelvic pain (Acute). Shingles outbreak (Acute). #3 this past 2021! Pain of back and lower extremity (Acute). Left, assoc w/ constipation .. but no clear relief with BM. Medication side effect (Acute). Headache, head/sinus pain with Symbicort. Tolerable @ 1/2 dose. Hx of status asthmaticus (Acute). Seasonal allergies (Acute). Hx of lymphadenopathy (Acute). when ill. Asthma (Chronic). shaunna w/ allergies. Racing heart beat (Acute). Seems since COVID+ (February 2020), [id number]-Restart. [ ] monitor. Coccygeal pain, acute (Acute). Seems since colonoscopy .. quite tender, affecting ADL. [ ] Pelvic PT. Left knee injury (Chronic). Blunt hit on knee-cap (focal lateral pain, tenderness). Urinary frequency (Acute). History of bronchitis (Chronic). Especially as child, cared for by Dr. Duarte. [facility] for pulm eval.. History of COVID-19 (Chronic). February 2021. Lingering SOB. No plans for vaccine as of 04/2021. May be interested in [facility] [place] [facility] for eval/research purposes. Shortness of breath (Acute). Lingering since February 2020 COVID+ (Hx walking 9m/day .. now maybe 2). IUD surveillance (Acute ~11/2020). Mirena. Family history of colon cancer (Chronic). [place] 2 years ago, 5yr recall (Mo & Fa w/ colon cancer). Cervical polyp (Acute). Resolved, no evidence of polyp @ technical account manager visit, 11/2021. Medical History . Asthma exacerbation attacks. Pt has lingering cough and SOB x months .. Hx COVID. Probable asthma exacerbation complicated by numerous ABx and mixed Tx. [ ] CXR [ ] Pulm. Hx of iron deficiency anemia. 1st . Surgical History . History of dental surgery PREVIOUS FUNCTIONAL STATUS/SOCIAL/FAMILY SUPPORTS:: Cherri lives in [place], [place] with her Kyle. She has a daughter Nisha and a son Naldo who live locally. ADVANCE DIRECTIVES:: none on file Has patient been provided with info about the portal/API?: Yes Did the patient sign up for the portal?: Yes (previously) CODE STATUS:: Full Code INSURANCE COVERAGE / FINANCIAL ISSUES:: [employer]ist 85
[2022-10-06 11:03] VITALS: BP 131/71; PULSE 80; RESP 24; TEMP 36.9; O2SAT 96
[2022-10-06] MEDS: Baclofen 10 MG TAB PO (11:19)
--- NOTE | 2022-10-06 12:12 | NUR.NOTE ---
Nursing Note: pt was seen at 12:10 fully clothed getting on elevator. pt was stopped by this customs entry writer and asked if she would like to sign an AMA form to which she did not reply. pt proceeded to close the elevator door. Krys ROJAS followed pt down the elevator to see if pt still had her IV in. pt refused to let Krys look at her arm.
--- NOTE | 2022-10-06 12:18 | NUR.NOTE ---
Nursing Note: 1214: this scribe notes pt standing at the elevator with large bag slung over shoulder. this scribe alerts primary nurse, JESSICA Brown who approaches pt at the elevator and asks the patient where are you going?, pt did not responds. nurse asks pt if she is willing to sign the ama form, pt does not answer, elevator door opens and pt enters elevator. nurse asks again if she would be willing to sign the ama paper and the pt turns away from the nurse with door closing. unclear if pt had iv in place; CRYSTAL Marcano and BRENT Solis go down to the lobby to assess if pt has IV; no iv found per nurse and WILDLIFE PROTECTOR. Pat Harrison, telephone solicitor supervisor present during this event.
--- NOTE | 2022-10-06 12:36 | W.PM.DS.N ---
Date of service: 10/06/22 Time of Service: 12:36 DS: Diagnosis Discharge Diagnosis (1) Back pain: Status: Acute (2) Ovarian cyst: Status: Acute (3) Hypokalemia: Status: Acute Discharge Plan Disposition Patient Disposition: AGAINST MEDICAL ADVICE Condition: Stable Discharge Details Reason For Visit: low back pain, severe Admit Date/Time: 10/05/22 23:07 Admit Provider: Griffin Atkins Attending Provider: Griffin Atkins Primary Care Provider: Concepcion Santiago [facility] Hospital Course: admitted for intractable back pain and awaiting MRI Was informed patient refusing MRI. went to speak with her regarding rationale for the MRI to diagnose a medical condition or identify an emergent condition that may require intervention. asked her why she was declining, was it pain, financial, or some other explanation. she stated pain. I informed her that I had added muscle relaxer, lidocaine patch and IV ativan prior to procedure. She informed me that she was allergic to lidocaine so I stated that I would discontinue that, and that we could give other pre-medication to tolerate the study. she asked about getting an ultrasound that pcp ordered. I stated that US was unlikely to occur at this admission and that she should keep scheduled outpatient study. I discussed that MRI would not be available after this afternoon until next week if she declines at this time. She stated she would consider and let her nurse know if she changed her mind about having the study. approx 10 minutes later I was informed she had removed her IV and was leaving the floor. she declined to sign ama paperwork. she gave no explanation to why she was leaving and there was no verbalization or evidence during my evaluation that indicated she would or wanted to leave. manager strategic development Erinn did communicate to me that patient refused to speak to her and nursing prior to my interaction with her but she did engage with me and I was unaware she was refusing to speak with other staff. Nursing staff reported that she walked off the floor with steady gait and no difficulty with ambulation. she appeared awake oriented with no question of capacity. Dr Souza notified of patient leaving Home Meds and New Rx's Prescriptions: No Action albuterol sulfate 90 mcg/actuation HFA aerosol inhaler 1 - 2 puff inhalation Q4H PRN (Reason: shortness of breath or wheezing) Qty: 1 0RF Rx Instructions: Dispense brand of albuterol inhaler covered by patient's insurance levalbuterol tartrate 45 mcg/actuation HFA aerosol inhaler 2 inh inhalation Q6H Qty: 15 8RF budesonide-formoterol [Symbicort] 160-4.5 mcg/actuation HFA aerosol inhaler 1 puff inhalation BID levalbuterol HCl [Xopenex] 1.25 mg/3 mL solution for nebulization 1.25 mg inhalation Q4H PRN (Reason: shortness of breath or wheezing) Qty: 75 1RF [place] Saline Gel 1 applic topical 8-12XD PRN (Reason: dry nasal passages) Qty: 14.1 1RF potassium gluconate 550 mg (90 mg) tablet 550 mg PO DAILY baclofen 10 mg tablet 10 mg PO TID PRN (Reason: muscle spasm) Qty: 30 1RF Rx Instructions: Trial for lower back mm spasm diazepam 2 mg tablet 2 mg PO BID PRN (Reason: anxiety) Qty: 10 0RF lysine 1,000 mg tablet 1,000 mg PO DAILY ipratropium bromide 0.02 % solution 2.5 ml inhalation Q6H PRN (Reason: shortness of breath or wheezing) Qty: 75 1RF cetirizine [Zyrtec] 10 mg Tablet 10 mg PO BID Discharge Instructions Diet:: As Tolerated Discharge Orders Discharge Orders: Discharge Order (Routine); Ordered 10/06/22 Ordered By: Yadira See Discharge Data Discharge Date/Time-TO BE ENTERED AT DEPARTURE: 10/06/22 12:11 DS: Summary Time Spent with Patient providing and/or coordinating discharge services: Less than 30 minutes Status at Discharge Functional status at discharge: independent ambulation Overall status at discharge: other Mental Status: mental status grossly normal Speech and Movement: speech and movement normal Mood: labile mood Affect: blunted Exam Const General: no acute distress Nutritional Appearance: obese Orientation: awake and oriented x3 HENMT Head: normal to inspection Resp Effort & Inspection: normal respiratory effort Skin General skin exam: no rashes or lesions noted (pink warm dry and well perfused) Neuro General: no focal motor deficits Extrem General: normal to inspection and full ROM Psych Appearance: grossly normal Mental Status: mental status grossly normal Speech and Movement: speech and movement normal Mood: labile mood Affect: blunted DS: Data Vitals/I&O Vitals and I&O: Vital Signs Temperature 36.9 C 10/06/22 11:03 Temperature Source Tympanic 10/06/22 11:03 Pulse 80 10/06/22 11:03 Pulse Rhythm Regular 10/06/22 04:32 Respiratory Rate 24 10/06/22 11:03 Respiratory Effort Non-Labored 10/06/22 04:32 Respiratory Depth Normal 10/06/22 04:32 Respiratory Pattern Normal 10/06/22 04:32 Blood Pressure 131/71 10/06/22 11:03 Blood Pressure Mean 107 10/05/22 23:46 Blood Pressure Position Sitting 10/05/22 15:35 Pulse Oximetry 96 10/06/22 11:03 Oxygen Delivery Method Room Air 10/06/22 11:03 Oxygen Flow Rate 0 10/06/22 11:03 Pain Level 10 10/06/22 11:19 Intake & Output 10/05/22 10/06/22 10/06/22 23:59 11:59 23:59 Intake Total 100 / 100 170 / 170 Balance 100 / 100 170 / 170 Weight 95.254 kg 95.254 kg Intake: IV 100 / 100 70 / 70 Oral 100 / 100 Data Completed and Pending Labs on day of discharge: Labs from last 24 hours 10/06/22 10/05/22 10/05/22 08:20 16:58 16:58 WBC 5.48 RBC 4.31 Hgb 13.8 Hct 40.5 MCV 94 MCH 32.0 MCHC 34.1 RDW 11.6 L Plt Count 206 MPV 9.6 Immature Gran % 0.4 Neutrophils % 59.6 Lymphocytes % 29.6 Monocytes % 8.4 Eosinophils % 1.3 Basophils % 0.7 Nucleated RBC % 0.0 Absolute Neutrophils 3.27 Absolute Lymphocytes 1.62 Absolute Monocytes 0.46 Absolute Eosinophils 0.07 Absolute Basophils 0.04 Sodium 143 Potassium 3.6 3.3 L Chloride 106 Carbon Dioxide 28.3 Anion Gap 8.7 BUN 9 Creatinine 0.9 Est GFR (CKD-EPI 2020) 77.88 Glucose 88 Calcium 9.1 Total Bilirubin 0.5 AST 18 ALT 19 Alkaline Phosphatase 66 C-Reactive Protein 0.11 Total Protein 7.1 Albumin 3.9 Lipase 83 Urine Color Urine Clarity Urine pH Ur Specific [place] Urine Protein Urine Ketones Urine Blood Urine Nitrite Urine Bilirubin Urine Urobilinogen Ur Leukocyte Esterase Urine Glucose COVID-19 Source SARS-CoV-2 (PCR) 10/05/22 10/05/22 16:57 16:18 WBC RBC Hgb Hct MCV MCH MCHC RDW Plt Count MPV Immature Gran % Neutrophils % Lymphocytes % Monocytes % Eosinophils % Basophils % Nucleated RBC % Absolute Neutrophils Absolute Lymphocytes Absolute Monocytes Absolute Eosinophils Absolute Basophils Sodium Potassium Chloride Carbon Dioxide Anion Gap BUN Creatinine Est GFR (CKD-EPI 2020) Glucose Calcium Total Bilirubin AST ALT Alkaline Phosphatase C-Reactive Protein Total Protein Albumin Lipase Urine Color Straw Urine Clarity Clear Urine pH 7.5 Ur Specific [place] 1.015 Urine Protein Negative Urine Ketones Negative Urine Blood Negative Urine Nitrite Negative Urine Bilirubin Negative Urine Urobilinogen 0.2 Ur Leukocyte Esterase Negative Urine Glucose Negative COVID-19 Source Nasal/Nares SARS-CoV-2 (PCR) Negative PFSH All Active Problems (Updated 10/05/22 @ 23:32 by Griffin Atkins MD) Hypokalemia (Acute) Ovarian cyst (Acute) Back pain (Acute) Ilio-inguinal strain (Acute) Pelvic pain (Acute) Shingles outbreak (Acute) #3 this past winter, 2021! Pain of back and lower extremity (Acute) Left, assoc w/ constipation .. but no clear relief with BM Medication side effect (Acute) Headache, head/sinus pain with Symbicort. Tolerable @ 1/2 dose. Hx of status asthmaticus (Acute) Seasonal allergies (Acute) Hx of lymphadenopathy (Acute) when ill Asthma (Chronic) shaunna w/ allergies Racing heart beat (Acute) Seems since COVID+ (February 2020), [id number]-Iykyu-Dpqj-Restart. [ ] monitor Coccygeal pain, acute (Acute) Seems since colonoscopy .. quite tender, affecting ADL. [ ] Pelvic PT Left knee injury (Chronic) Blunt hit on knee-cap (focal lateral pain, tenderness) Urinary frequency (Acute) History of bronchitis (Chronic) Especially as child, cared for by Dr. Duarte. Hx [facility] for pulm eval.. History of COVID-19 (Chronic) February 2021. Lingering SOB. No plans for vaccine as of 04/2021. [place] [facility] [place] [facility] [place] purposes. Shortness of breath (Acute) Lingering since February 2020 COVID+ (Hx walking 9m/day .. now maybe 2). IUD surveillance (Acute ~11/2020) Abi Family history of colon cancer (Chronic) [place] 2 years ago, 5yr recall (Mo & Fa w/ colon cancer). Cervical polyp (Acute) Resolved, no evidence of polyp @ checker product design visit, 11/2021. Medical History Asthma exacerbation attacks Pt has lingering cough and SOB x months .. Hx COVID. Probable asthma exacerbation complicated by numerous ABx and mixed Tx. [ ] CXR [ ] Pulm Hx of iron deficiency anemia 1st Surgical History History of dental surgery Family History Paternal Grandfather Colon cancer Paternal Aunt Colon cancer Paternal Aunt Colon cancer Father Colon cancer Allergies Asthma Brother Myocardial infarct Substance abuse alcohol Hyperplastic colon polyp Heart disease Alcohol abuse Asthma Maternal Grandfather Prostate cancer Daughter Allergies Asthma Son Allergies Asthma Social History Smoking/Tobacco Use Status: Former Tobacco Use Quit Date: 11/26/94 Tobacco: How many years used: 3 Smoking risk assessment performed?: Yes Alcohol Intake: current Alcohol Intake frequency: a few times a week Alcohol type: beer and hard liquor Drug use: Rarely Substance use type: marijuana Details: no IV drug use Adopted: No Caregiver/Support person: No Foster care: No Household members: family Housing: house Sexually active: Yes Do you think of yourself as: straight/heterosexual Current gender identity: female Do you feel safe at home: Yes Do you feel safe in your relationship?: Yes Female Reproductive History Menstrual Age of Menarche: 17 control method: other ( with vasectomy) History History 5 Para 4 Hx # Term Pregnancies Multiple births Hx # Pregnancies Ectopic pregnancies AB induced Hx Number of Living Children AB spontaneous
--- NOTE | 2022-10-06 13:05 | PDOC.CMPRO ---
- If Service Date Differs Date of service: 10/06/22 Time of Service: 13:05 Care Management Progress Note When WALESKA attempted to meet with Cherri this morning she refused to engage in conversation. She kept her eyes closed and only mumbled a one word answer when asked if she was able to hear. Cherri signed out AMA at 12:15 pm.
--- NOTE | 2022-10-06 16:27 | NT_ITS ---
PT Notes Visit Reasons: low back pain, severe Patient left AMA earlier today. No skilled services were provided for this episode of care. Thank you for the opportunity to participate in the care of this patient. Jessica Almonte PT, DPT, CLT [facility] [place], [place]
== END 2022-10-06 12:11 | disposition left against medical advice (07) ==
LOC: ER 23:32 → MS 10-06 08:20
PROVIDERS: Admitting Provider Family Medicine; Emergency Provider Physician Assistant; PCP Student in an Organized Health Care Education/Training Program; Visit Provider Family Medicine
DX: M47.816 Spondylosis without myelopathy or radiculopathy, lumbar region (principal); M41.86 Other forms of scoliosis, lumbar region; N83.292 Other ovarian cyst, left side; Z79.899 Other long term (current) drug therapy; J45.909 Unspecified asthma, uncomplicated; U09.9 Post COVID-19 condition, unspecified; R06.02 Shortness of breath; E87.6 Hypokalemia; Z20.822 Contact with and (suspected) exposure to COVID-19
CPT/HCPCS: 36415; 80053; 83690; 87635; 94640; 96365; 96374; 96375; 96376; 99285; 74177; 81003; 84132; 85025; 86140; 99217; 99220; G0378; J0131; J1100; J1170; J1885; J3360; J3490; J7512

== ENCOUNTER 2024-07-24 03:58 | Outpatient (CLI) | payer MEDICAID, SELFPAY ==
[2024-07-24 18:36] LABS: BUN 12 mg/dL (7-18); CREATININE 0.9 mg/dL (0.55-1.02); Calcium 9.6 mg/dL (8.5-10.1); Calculated LDL 117 mg/dL (<100); Chloride 105 mmol/L (98-107); Cholesterol 225 mg/dL (<200); Estimated GFR 76.92 (mL/min/1.73m2); Glucose 87 mg/dL (74-106); HDL Cholesterol 91 mg/dL (40-60); Potassium 3.6 mmol/L (3.5-5.1); Sodium 141 mmol/L (136-145); Triglyceride 87 mg/dL (<150)
== END 2024-07-24 03:59 | disposition home or self-care (01) ==
LOC: LBO 03:59
PROVIDERS: PCP Student in an Organized Health Care Education/Training Program; Referring Provider Student in an Organized Health Care Education/Training Program; Visit Provider Student in an Organized Health Care Education/Training Program
DX: Z13.220 Encounter for screening for lipoid disorders (principal); I10 Essential (primary) hypertension
CPT/HCPCS: 36415; 80048; 80061

== ENCOUNTER 2025-06-03 08:48 | Outpatient (CLI) | payer MEDICAID, SELFPAY ==
--- NOTE | 2025-06-03 08:45 | RT.EKG_ITS ---
APPROVED REPORT Exam: Resting ECG Reason for Exam: irregular HR Patient Location: O HR:62 bpm ECG Measurements Heart Rate 62 AXIS CA 170 P 21 QRSd 97 QRS 42 QT 461 T 28 QTc 469 Conclusion Sinus rhythm...normal P axis, V-rate 50- 99 Multiple ventricular premature complexes...V complexes w/ short R-R intervls Nonspecific T abnormalities, anterior leads...T <-0.10mV, V2-V4
== END 2025-06-03 08:49 | disposition home or self-care (01) ==
LOC: DI.KIM 08:49
PROVIDERS: PCP Nurse Practitioner Family; Visit Provider Nurse Practitioner Family
DX: I49.9 Cardiac arrhythmia, unspecified (principal)
CPT/HCPCS: 93010

== ENCOUNTER 2025-07-21 03:03 | Outpatient (CLI) | payer MEDICAID, SELFPAY ==
[2025-07-21 15:40] LABS: ESR 4 mm/hr (0-30)
[2025-07-21 16:33] LABS: Magnesium 1.8 mg/dL (1.8-2.4)
[2025-07-22 10:47] LABS: Hep A Total Ab w Rflx IgM Negative (Negative)
== END 2025-07-21 03:04 | disposition home or self-care (01) ==
LOC: LBO 03:03
PROVIDERS: PCP Nurse Practitioner Family; Visit Provider Nurse Practitioner Family
DX: R19.7 Diarrhea, unspecified (principal)
CPT/HCPCS: 36415; 85652; 86709; 83735